=== PATIENT | male | born 1960 | race Hispanic/Latino ===

== ENCOUNTER 2017-03-08 14:15 | Emergency (ER) | payer MEDICAID ==
[2017-03-08 14:15] VITALS: BMI 41.3
[2017-03-08 14:31] VITALS: O2SAT 98
--- NOTE | 2017-03-08 15:08 | ED PDOC ---
Arrival/HPI <Pasha Caraballo - Last Filed: 03/08/17 17:35> - General Historian: Patient - History of Present Illness Time/Duration: Prior to Arrival Symptom Onset: Sudden Symptom Course: Unchanged Context: Home <LalaNancy - Last Filed: 03/08/17 18:10> - General Chief Complaint: Back Pain Time Seen by Provider: 03/08/17 14:34 - History of Present Illness Narrative History of Present Illness (Text): 03/08/17 15:02 56 yo male with PMH of HTN, asthma presented to ED with left sided paraspinal rib pain. Patient states that the pain started yesterday. He denies any recent trauma or falls. He states that he had a fall 20 years ago any he believes that is contributing to the current pain. Patient states pain is 2/10, radiating to left shoulder. Pain is worse with movement, denies taking any medication to alleviate the pain. He reports increased urinary frequency over the past few days, denies dysuria. He denies fever, chills, chest pain, sob, n/v/d/c. PMD: Dr. Siu (Nancy Reeves) Past Medical History - Provider Review Nursing Documentation Reviewed: Yes - Infectious Disease Hx of Infectious Diseases: None - Tetanus Immunization Tetanus Immunization: Unknown - Cardiac Hx Cardiac Disorders: Yes Hx Hypertension: Yes Other/Comment: JOANNA [id number] - Pulmonary Hx Respiratory Disorders: Yes Hx Asthma: Yes Other/Comment: SMOKED 1/2 TO PPD QUIT - Neurological Hx Neurological Disorder: Yes Hx Dizziness: Yes - HEENT Hx HEENT Disorder: No - Renal Hx Renal Disorder: No - Endocrine/Metabolic Hx Endocrine Disorders: No - Hematological/Oncological Hx Blood Disorders: No - Integumentary Hx Dermatological Disorder: No - Musculoskeletal/Rheumatological Hx Falls: No - Gastrointestinal Hx Gastrointestinal Disorders: Yes Other/Comment: GASTRITIS,OBESITY - Genitourinary/Gynecological Hx Genitourinary Disorders: No - Psychiatric Hx Depression: No Hx Emotional Abuse: No Hx Physical Abuse: No Hx Substance Use: No - Surgical History Hx Appendectomy: Yes Other/Comment: JOANNA VELASQUEZ 2001 - Anesthesia Hx Anesthesia Reactions: No - Suicidal Assessment Feels Threatened In Home Enviroment: No <Nancy Reeves - Last Filed: 03/08/17 18:10> Family/Social History - Physician Review Nursing Documentation Reviewed: Yes Family/Social History: No Known Family HX Smoking Status: Never Smoked Hx Alcohol Use: No Hx Substance Use: No Hx Substance Use Treatment: No <Nancy Reeves - Last Filed: 03/08/17 18:10> Allergies/Home Meds <Pasha Caraballo - Last Filed: 03/08/17 17:35> <Nancy Reeves - Last Filed: 03/08/17 18:10> Allergies/Adverse Reactions: Allergies No Known Allergies Allergy (Verified 03/08/17 14:25) Home Medications: Home Meds Medication Instructions Recorded Confirmed Aspirin [Ecotrin] 81 mg PO DAILY 02/24/16 03/08/17 Metoprolol Tartrate [Lopressor] 25 mg PO DAILY 02/24/16 03/08/17 Cetirizine HCl [Zyrtec] 10 mg PO DAILY 03/08/17 03/08/17 Ergocalciferol (Vitamin D2) 1 cap PO QWK 03/08/17 03/08/17 [Vitamin D2] Famotidine [Pepcid] 20 mg PO DAILY 03/08/17 03/08/17 Hydrochlorothiazide [Microzide] 12.5 mg PO DAILY 03/08/17 03/08/17 amLODIPine [Norvasc] 5 mg PO DAILY 03/08/17 03/08/17 Review of Systems - Review of Systems Constitutional: Normal. absent: Fatigue, Fevers Eyes: Normal. absent: Vision Changes ENT: Normal. absent: Sore Throat, Rhinorrhea, Sinus Congestion Respiratory: Normal. absent: SOB, Cough, Wheezing Cardiovascular: Normal, Edema. absent: Chest Pain, Palpitations, Calf Pain, Syncope Gastrointestinal: Normal. absent: Abdominal Pain, Constipation, Diarrhea, Nausea, Vomiting Genitourinary Male: Frequency. absent: Dysuria, Hematuria Musculoskeletal: Back Pain (left sided paraspinal ). absent: Neck Pain Skin: Normal. absent: Rash, Pruritis, Laceration, Abscess Neurological: Normal. absent: Headache, Dizziness, Focal Weakness Endocrine: Normal. absent: Diaphoresis, Polyuria, Polydipsia Hemo/Lymphatic: Normal. absent: Easy Bleeding, Easy Bruising Psychiatric: Normal <Nancy Reeves - Last Filed: 03/08/17 18:10> Physical Exam Vital Signs Reviewed: Yes - Systems Exam Head: Present: Atraumatic, Normocephalic Pupils: Present: PERRL. No: Sluggish, Non-Reactive, Pinpoint Extroacular Muscles: Present: EOMI. No: Entrapment Conjunctiva: Present: Normal. No: Injected, Icteric Mouth: Present: Moist Mucous Membranes Neck: Present: Normal Range of Motion. No: MIDLINE TENDERNESS, Paraspinal Tenderness Respiratory/Chest: Present: Clear to Auscultation, Good Air Exchange. No: Respiratory Distress, Accessory Muscle Use, Wheezes, Rales, Rhonchi, Tachypneic Cardiovascular: Present: Regular Rate and Rhythm, Normal S1, S2. No: Murmurs, Tachycardic Abdomen: Present: Normal Bowel Sounds. No: Tenderness, Distention, Peritoneal Signs Back: Present: Normal Inspection, Paraspinal Tenderness (left sided rib pain ). No: CVA Tenderness, Midline Tenderness Upper Extremity: Present: Normal Inspection, NORMAL PULSES. No: Cyanosis, Edema , Tenderness, Swelling Lower Extremity: Present: Normal Inspection, Edema, NORMAL PULSES. No: CALF TENDERNESS Neurological: Present: GCS=15, CN II-XII Intact, Speech Normal Skin: Present: Warm, Dry, Normal Color. No: Rashes Psychiatric: Present: Alert, Oriented x 3, Normal Insight, Normal Concentration <Nancy Reeves - Last Filed: 03/08/17 18:10> Vital Signs Temp Pulse Resp BP Pulse Ox 03/08/17 17:22 66 18 162/71 H 98 03/08/17 16:28 65 18 165/79 H 98 03/08/17 15:22 98.7 F 68 18 168/89 H 98 03/08/17 14:25 99.1 F 70 17 170/91 H 98 Medical Decision Making <Pasha Caraballo - Last Filed: 03/08/17 17:35> - EKG Interpretation Interpreted by ED Physician: Yes Type: 12 lead EKG <Nancy Reeves - Last Filed: 03/08/17 18:10> ED Course and Treatment: Patient Seen With Resident: In agreement with resident note which contains more details about the patient. Patient was seen and evaluated with resident. Came up with plan and treatment together. A 56 year old male presents with left sided paraspinal rib pain that developed yesterday. Additional HPI details as noted by resident. On physical exam, patient had paraspinal tenderness. Xray of ribs and Urinalysis ordered. Will give Flexeril and Toradol medications. EKG: Ordered, reviewed, and independently interpreted the EKG. Rate : 68 BPM Rhythm : NSR Interpretation : No ST-segment elevations or depressions, no T-wave inversions, normal intervals. 03/08/17 17:35 Accession No. 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 Focal isodense protrusion seen at the midpole of the right kidney of uncertain etiology. The possibility of mass lesion at the right kidney is not a excluded. Further assessment by ultrasound or enhanced CT is suggested. No evidence of acute pathology in the abdomen and pelvis. Patient feels better. UA with trace blood. CT ordered to r/o kidney stone. CT reviewed with no CT stone. Possible mass noted in the kidney. Will have patient follow up with PMD on this. Labs pending. (Pasha Caraballo) 03/08/17 15:12 Impression: 56 yo male with PMH of HTN, asthma presented to ED with left sided paraspinal rib pain. Differential diagnoses includes but not limited to: - muscle strain, pylonephritis Plan: - x ray - UA - pain management 03/08/17 16:15 - UA positive for blood, will order CBC, CMP and CT abd/pel without contrast. Patient is doing well, pain improved. 03/08/17 18:07 - cbc and cmp reviewed and wnl. - Patient is feeling better. Results of CT scan discussed with patient, he is instructed to follow up with PMD, Dr. Siu tomorrow. Discharge instructions was discussed with patient, all questions answered. (Nancy Reeves) - Lab Interpretations Lab Results: 03/08/17 17:00 03/08/17 17:00 Lab Results 03/08/17 17:00: Sodium 139, Potassium 3.8, Chloride 104, Carbon Dioxide 26, Anion Gap 13, BUN 10, Creatinine 0.7, Est GFR ( Amer) > 60, Est GFR (Non- Af Amer) > 60, Random Glucose 88, Calcium 9.1, Total Bilirubin 1.2, AST 48, ALT 35, Alkaline Phosphatase 93, Total Protein 7.6, Albumin 4.1, Globulin 3.5, Albumin/Globulin Ratio 1.2 03/08/17 17:00: WBC 7.5, RBC 4.84, Hgb 14.4, Hct 42.9, MCV 88.6, MCH 29.8, MCHC 33.6, RDW 13.3, Plt Count 185, MPV 10.1, Gran % 59.0, Lymph % (Auto) 29.1, [place] % (Auto) 8.3 H, Eos % (Auto) 2.7, Baso % (Auto) 0.9, Gran # 4.40, Lymph # 2.2, [place] # 0.6, Eos # 0.2, Baso # 0.07 03/08/17 14:50: Urine Color Yellow, Urine Appearance Clear, Urine pH 6.0, Ur Specific [place] >= 1.030, Urine Protein Negative, Urine Glucose (UA) Negative, Urine Ketones Negative, Urine Blood Trace-lysed H, Urine Nitrate Negative, Urine Bilirubin Negative, Urine Urobilinogen 1.0 H, Ur Leukocyte Esterase Negative, Urine RBC 1 - 3, Urine WBC 0 - 2, Ur Epithelial Cells 0 - 2, Urine Bacteria Mod - RAD Interpretation Radiology Orders: 03/08/17 14:57 RIBS LEFT & PA CHEST [RAD] Stat 03/08/17 16:13 ABD & PELVIS W/O PO OR IV CONT [CT] Stat - EKG Interpretation EKG Interpretation (Text): 03/08/17 15:15 Rate: 68 NSR, no ST changes (Lala,Nancy) - Medication Orders Current Medication Orders: Discontinued Medications Cyclobenzaprine HCl (Flexeril) 10 mg PO STAT STA Stop: 03/08/17 14:58 Last Admin: 03/08/17 15:30 Dose: 10 mg Ketorolac Tromethamine (Toradol) 60 mg IM STAT STA Stop: 03/08/17 14:58 Last Admin: 03/08/17 15:30 Dose: 60 mg - Scribe Statement The provider has reviewed the documentation as recorded by the Scribe <Pasha Caraballo - Last Filed: 03/08/17 17:35> <Nancy Reeves - Last Filed: 03/08/17 18:10> - Scribe Statement Poppy Hendrix Provider Scribe Attestation: All medical record entries made by the Scribe were at my direction and personally dictated by me. I have reviewed the chart and agree that the record accurately reflects my personal performance of the history, physical exam, medical decision making, and the department course for this patient. I have also personally directed, reviewed, and agree with the discharge instructions and disposition. (Pasha Caraballo) Disposition/Present on Arrival <Pasha Caraballo - Last Filed: 03/08/17 17:35> - Present on Arrival Any Indicators Present on Arrival: No History of DVT/PE: No History of Uncontrolled Diabetes: No Urinary Catheter: No History of Decub. Ulcer: No History Surgical Site Infection Following: None - Disposition Have Diagnosis and Disposition been Completed?: Yes Disposition Time: 18:00 Patient Plan: Discharge <Jorge Reevesa - Last Filed: 03/08/17 18:10> - Disposition Diagnosis: Muscle strain Disposition: HOME/ ROUTINE Condition: GOOD Referrals: Manjit Siu MD [Primary Care Provider] - Follow up with primary
[2017-03-08 15:43] LABS: URINE BILIRUBIN NEGATIVE (NEGATIVE); URINE BLOOD TRACE-LYSED (NEGATIVE); URINE GLUCOSE (UA) NEGATIVE (NEGATIVE); URINE KETONE NEGATIVE (NEGATIVE); URINE LEUKOCYTE ESTERASE NEGATIVE Leu/uL (NEGATIVE); URINE PROTEIN NEGATIVE mg/dL (<30 mg/dL)
[2017-03-08 16:10] LABS: URINE APPEARANCE CLEAR (CLEAR); URINE COLOR YELLOW (YELLOW)
[2017-03-08 16:33] LABS: URINE BACTERIA MOD (NEG); URINE EPITHELIAL CELLS 0 - 2 /hpf (0-5); URINE WBC 0 - 2 /hpf (0-6)
--- NOTE | 2017-03-08 17:27 | CT ---
PROCEDURE: CT Abdomen and Pelvis without intravenous contrast HISTORY: UA positive for blood COMPARISON: None. TECHNIQUE: Axial and reformatted coronal and sagittal CT images of the abdomen and pelvis were obtained without IV or oral contrast administration.. Contrast Dose: 0 Radiation dose: Total exam DLP = 1461.78 mGy-cm. This CT exam was performed using one or more of the following dose reduction techniques: Automated exposure control, adjustment of the mA and/or kV according to patient size, and/or use of iterative reconstruction technique. FINDINGS: LOWER THORAX: Unremarkable. LIVER: Unremarkable. No gross lesion or ductal dilatation. GALLBLADDER AND BILE DUCTS: Unremarkable. PANCREAS: Unremarkable. No gross lesion or ductal dilatation. SPLEEN: Unremarkable. ADRENALS: Unremarkable. No mass. KIDNEYS AND URETERS: There is no evidence of nephrolithiasis or hydronephrosis. There is focal as a density protrusion in the right kidney midpole. The possibility of mass lesion cannot be totally excluded. VASCULATURE: Unremarkable. No aortic aneurysm. BOWEL: Unremarkable. No obstruction. No gross mural thickening. APPENDIX: Unremarkable. Normal appendix. PERITONEUM: Unremarkable. No free fluid. No free air. LYMPH NODES: Unremarkable. No enlarged lymph nodes. BLADDER: Unremarkable. REPRODUCTIVE: Unremarkable. BONES: No acute fracture. OTHER FINDINGS: None. IMPRESSION: No evidence of nephrolithiasis or hydronephrosis. Focal isodense protrusion seen at the midpole of the right kidney of uncertain etiology. The possibility of mass lesion at the right kidney is not a excluded. Further assessment by ultrasound or enhanced CT is suggested. No evidence of acute pathology in the abdomen and pelvis.
[2017-03-08 17:38] LABS: ADD MANUAL DIFF? NO
[2017-03-08 17:45] LABS: BASO # 0.07 K/mm3 (0.0-2.0); BASO % 0.9 % (0.0-3.0); EOS # 0.2 (0.0-0.7); EOS % 2.7 % (1.5-5.0); HEMATOCRIT 42.9 % (42.0-52.0); LYMPH # 2.2 (1.2-3.4); LYMPH % 29.1 % (22.0-35.0); MEAN CELL VOLUME 88.6 fL (80.0-105.0); MEAN CORPUSCULAR HEMOGLOBIN 29.8 pg (25.0-35.0); MEAN CORPUSCULAR HGB CONC 33.6 g/dl (31.0-37.0); MEAN PLATELET VOLUME 10.1 fl (7.0-11.0); MONO # 0.6 (0.1-0.6); MONO % 8.3 % (1.0-6.0); PLATELET COUNT 185 10^3/uL (120.0-450.0); RED CELL DISTRIBUTION WIDTH 13.3 % (11.5-14.5); WHITE BLOOD COUNT 7.5 10^3/ul (4.5-11.0)
[2017-03-08 17:55] LABS: ALB/GLOB RATIO 1.2 (1.1-1.8); ALKALINE PHOSPHATASE 93 U/L (38-133); ALT/SGPT 35 U/L (7-56); AST/SGOT 48 U/L (15-59); BILIRUBIN,TOTAL 1.2 mg/dL (0.2-1.3); BLOOD UREA NITROGEN 10 mg/dL (7-21); CALCIUM 9.1 mg/dL (8.4-10.5); CARBON DIOXIDE 26 mmol/L (21-33); GFR AFRICAN-AMERICAN > 60; GLUCOSE,RANDOM 88 mg/dL (70-110); SODIUM 139 mmol/L (132-148); TOTAL PROTEIN 7.6 g/dL (5.8-8.3)
[2017-03-08 17:57] LABS: CHLORIDE 104 mmol/L (98-107); POTASSIUM 3.8 mmol/L (3.6-5.0)
[2017-03-08 18:26] VITALS: BP 122/78; PULSE 74; RESP 16; TEMP 98
--- NOTE | 2017-03-09 09:41 | RAD ---
PROCEDURE: Radiographs of the Chest and Left Ribs. HISTORY: rib pain COMPARISON: None available. TECHNIQUE: Frontal radiograph of the chest and multiple oblique radiographs of the left ribs were obtained. FINDINGS: LEFT RIBS: No fracture or focal lesion visualized. LUNGS: Clear. PLEURA: No pneumothorax or pleural fluid. CARDIOVASCULAR: Normal sized heart. No pulmonary vascular congestion. OTHER FINDINGS: None. IMPRESSION: Unremarkable radiographs of the chest and left ribs. No left rib fracture.
--- NOTE | 2017-03-09 23:28 | CARD ---
APPROVED REPORT EKG Measurement Heart [id number] [id number] <Conclusion> Normal sinus rhythm Normal ECG
== END 2017-03-08 18:26 | disposition home or self-care (01) ==
LOC: ED 14:15
DX: S29.011A Strain of muscle and tendon of front wall of thorax, initial encounter (principal); X58.XXXA Exposure to other specified factors, initial encounter; I10 Essential (primary) hypertension; Z87.891 Personal history of nicotine dependence
CPT/HCPCS: 71101; 74176; 80053; 81001; 85025; 93005; 96372; 99284; J1885

== ENCOUNTER 2017-03-16 17:09 | Observation (INO) | payer MEDICAID ==
[2017-03-16 17:10] VITALS: BMI 41.3
[2017-03-16] MEDS ORDERED: Ampicillin/Sulbactam 3 GM in Sodium Chloride 0.9% 100 ML IVPB STA (17:46)
[2017-03-16] MEDS ORDERED: Sodium Chloride 0.9% 1,000 ML IV STA (17:46)
[2017-03-16] MEDS ORDERED: Lidocaine 1% Inj (20ml) IJ STA (17:47)
--- NOTE | 2017-03-16 17:52 | ED PDOC ---
Arrival/HPI - General Chief Complaint: ENT Problem Time Seen by Provider: 03/16/17 17:34 - History of Present Illness Narrative History of Present Illness (Text): 56M c/o throat pain, more on the left side, worsening since yesterday. no fever. he went to his pcp today who sent him here. Past Medical History - Infectious Disease Hx of Infectious Diseases: None - Tetanus Immunization Tetanus Immunization: Unknown - Cardiac Hx Cardiac Disorders: Yes Hx Hypertension: Yes Other/Comment: JOANNA CATHAsh2001 - Pulmonary Hx Respiratory Disorders: Yes Hx Asthma: Yes Other/Comment: SMOKED 1/2 TO PPD QUIT - Neurological Hx Neurological Disorder: Yes Hx Dizziness: Yes - HEENT Hx HEENT Disorder: No - Renal Hx Renal Disorder: No - Endocrine/Metabolic Hx Endocrine Disorders: No - Hematological/Oncological Hx Blood Disorders: No - Integumentary Hx Dermatological Disorder: No - Musculoskeletal/Rheumatological Hx Falls: No - Gastrointestinal Hx Gastrointestinal Disorders: Yes Other/Comment: GASTRITIS,OBESITY - Genitourinary/Gynecological Hx Genitourinary Disorders: No - Psychiatric Hx Depression: No Hx Emotional Abuse: No Hx Physical Abuse: No Hx Substance Use: No - Surgical History Hx Appendectomy: Yes Other/Comment: JOANNA CATHAsh 2001 - Anesthesia Hx Anesthesia Reactions: No - Suicidal Assessment Feels Threatened In Home Enviroment: No Family/Social History Family/Social History: Other (nc) Smoking Status: Never Smoked Hx Alcohol Use: No Hx Substance Use: No Hx Substance Use Treatment: No Allergies/Home Meds Allergies/Adverse Reactions: Allergies No Known Allergies Allergy (Verified 03/16/17 17:19) Home Medications: Home Meds Medication Instructions Recorded Confirmed Aspirin [Ecotrin] 81 mg PO DAILY 02/24/16 03/16/17 Metoprolol Tartrate [Lopressor] 25 mg PO DAILY 02/24/16 03/16/17 Cetirizine HCl [Zyrtec] 10 mg PO DAILY 03/08/17 03/16/17 Ergocalciferol (Vitamin D2) 1 cap PO QWK 03/08/17 03/16/17 [Vitamin D2] Famotidine [Pepcid] 20 mg PO DAILY 03/08/17 03/16/17 Hydrochlorothiazide [Microzide] 12.5 mg PO DAILY 03/08/17 03/16/17 amLODIPine [Norvasc] 5 mg PO DAILY 03/08/17 03/16/17 Review of Systems - Physician Review All systems were reviewed & negative as marked: Yes - Review of Systems Constitutional: absent: Fevers ENT: Sore Throat. absent: Voice Changes Respiratory: absent: SOB, Cough Cardiovascular: absent: Chest Pain Gastrointestinal: absent: Nausea, Vomiting Physical Exam Vital Signs Reviewed: Yes Vital Signs Temp Pulse Resp BP Pulse Ox 03/16/17 17:20 99.6 F 107 H 17 169/85 H 94 L Appearance: Positive for: Well-Appearing, Non-Toxic, Comfortable Pain Distress: None Mental Status: Positive for: Alert and Oriented X 3 - Systems Exam Head: Present: Atraumatic Pupils: Present: PERRL Mouth: Present: Moist Mucous Membranes Pharnyx: Present: Peritonsilar Swelling (left peritonsillar abscess), Uvular Deviation, Other (normal phonation, no trismus, handling secretions well). No: Muffled/Hoarse Voice, [place] Neck: Present: Normal Range of Motion Respiratory/Chest: Present: Clear to Auscultation. No: Accessory Muscle Use Cardiovascular: Present: Regular Rate and Rhythm Upper Extremity: No: Cyanosis Neurological: Present: GCS=15, Motor Func Grossly Intact, Normal Sensory Function Skin: Present: Warm, Dry Medical Decision Making ED Course and Treatment: 03/16/17 18:25 ENT resident at bedside attempting I&D. Bloody drainage only, non-purulent. Pt tolerated procedure well- reported feeling better after. - Medication Orders Current Medication Orders: Sodium Chloride (Sodium Chloride 0.9%) 1,000 mls @ 999 mls/hr IV .Q1H1M STA Stop: 03/16/17 18:46 Last Admin: 03/16/17 18:17 Dose: 999 mls/hr Ampicillin Sodium/Sulbactam (Sodium 3 gm/ Sodium Chloride) 100 mls @ 100 mls/ hr IVPB STAT STA PRN Reason: Protocol Stop: 03/16/17 18:45 Last Admin: 03/16/17 18:17 Dose: 100 mls/hr Discontinued Medications Dexamethasone (Decadron Inj) Confirm Administered Dose 12 mg .ROUTE .STK-MED ONE Stop: 03/16/17 18:22 Last Admin: 03/16/17 18:30 Dose: 10 mg Comments: Per verbal order Dr. Funk Ketorolac Tromethamine (Toradol) Confirm Administered Dose 30 mg .ROUTE .STK- MED ONE Stop: 03/16/17 18:21 Last Admin: 03/16/17 18:29 Dose: 15 mg Comments: Per verbal order Dr. Funk Lidocaine HCl (Lidocaine 1% (20ml)) 20 ml IJ STAT STA Stop: 03/16/17 17:48 Last Admin: 03/16/17 18:17 Dose: Disposition/Present on Arrival - Present on Arrival Any Indicators Present on Arrival: No History of DVT/PE: No History of Uncontrolled Diabetes: No Urinary Catheter: No History of Decub. Ulcer: No History Surgical Site Infection Following: None - Disposition Have Diagnosis and Disposition been Completed?: Yes Diagnosis: Peritonsillar cellulitis Disposition: HOSPITALIZED Disposition Time: 18:33 Condition: STABLE Discharge Instructions (ExitCare): Cellulitis (ED)
[2017-03-16 18:16] LABS: ADD MANUAL DIFF? NO
[2017-03-16] MEDS ORDERED: Dexamethasone 4 mg/1 ml ONE (18:21)
[2017-03-16 18:29] LABS: BASO # 0.04 K/mm3 (0.0-2.0); BASO % 0.4 % (0.0-3.0); EOS # 0.1 (0.0-0.7); EOS % 1.2 % (1.5-5.0); GRAN # 8.93 (1.4-6.5); GRAN % 78.6 % (50.0-68.0); HEMATOCRIT 42.9 % (42.0-52.0); LYMPH # 1.3 (1.2-3.4); LYMPH % 11.3 % (22.0-35.0); MEAN CELL VOLUME 87.9 fL (80.0-105.0); MEAN CORPUSCULAR HEMOGLOBIN 29.5 pg (25.0-35.0); MEAN CORPUSCULAR HGB CONC 33.6 g/dl (31.0-37.0); MEAN PLATELET VOLUME 10.1 fl (7.0-11.0); MONO % 8.5 % (1.0-6.0); PLATELET COUNT 207 10^3/uL (120.0-450.0); RED CELL DISTRIBUTION WIDTH 13.7 % (11.5-14.5); WHITE BLOOD COUNT 11.4 10^3/ul (4.5-11.0)
[2017-03-16 18:40] LABS: ALB/GLOB RATIO 1.3 (1.1-1.8); ALKALINE PHOSPHATASE 103 U/L (38-133); ALT/SGPT 42 U/L (7-56); AST/SGOT 33 U/L (15-59); BILIRUBIN,TOTAL 1.4 mg/dL (0.2-1.3); BLOOD UREA NITROGEN 10 mg/dL (7-21); CALCIUM 9.2 mg/dL (8.4-10.5); CARBON DIOXIDE 27 mmol/L (21-33); CHLORIDE 99 mmol/L (98-107); GFR AFRICAN-AMERICAN > 60; GLUCOSE,RANDOM 105 mg/dL (70-110); POTASSIUM 3.6 mmol/L (3.6-5.0); SODIUM 136 mmol/L (132-148); TOTAL PROTEIN 7.9 g/dL (5.8-8.3)
--- NOTE | 2017-03-16 20:29 | CON ---
DATE: 03/16/2017 EAR, NOSE AND THROAT CONSULTATION REASON FOR CONSULTATION: Peritonsillar abscess. CONSULTING PHYSICIAN: Dr. Steve Wood. REFERRING PHYSICIAN: Dr. Nestor Funk. HISTORY OF PRESENT ILLNESS: This is a 56-year-old male with no significant past medical history, who presents to the [facility] Emergency Room with a 2-day history of sore throat. The choco ent states that he noticed a sore throat starting yesterday and then today it got significantly worse , prompting his visit to the Emergency Room. The patient also notes dysphagia and odynophagia for li quids and solids. He also notes some changes in his voice and some tenderness to his left neck. He denies fevers and chills at home. He denies any shortness of breath or difficulty breathing at this time. He does note one incident many years back where he had a similar complaint and was put on oral antibiotics, which seemed to have resolved the episode. However, since then he has not had any rizwana lar complaints and has been healthy otherwise. He denies having tonsillectomy in the past. At that point of examination, the patient is stable, comfortable and reports the history as described above. He denies having ever seen an ear, nose and throat doctor and denies other ear, nose and throat comp laints at this time. PAST MEDICAL HISTORY: Obesity, gastritis. He has hypertension. PAST SURGICAL HISTORY: He has had an appendectomy many years ago. Also had a cardiac catheterizatio n with negative results. SOCIAL HISTORY: He used to smoke half a pack a day, but has recently quit. Denies alcohol use. ALLERGIES: He has no known drug or environmental allergies. MEDICATIONS: He takes aspirin, metoprolol, cetirizine, vitamin D, Pepcid, hydrochlorothiazide and am lodipine. REVIEW OF SYSTEMS: Negative as per HPI. PHYSICAL EXAMINATION: VITAL SIGNS: His temperature is 99.6, pulse is 107, blood pressure 169/85, oxygen saturation 96% on room air. GENERAL: He is awake, alert, oriented x 3 in no acute distress, sitting comfortably. EYES: Extraocular movements intact. Pupils equal, round, and reactive to light. EARS: External auricles are unremarkable. NOSE: Patent bilaterally, no discharge, no epistaxis. OROPHARYNX AND ORAL CAVITY: Lips are unremarkable. Tongue is mobile and midline. Oral mucosa is dr yAsh No buccal lesions. He has edema to the left soft palate and slight edema to the uvula. Uvula is deviated to the right. Some trismus, no drooling. NECK: Soft, supple, tender to palpation on the left side with shotty lymphadenopathy. Trachea midli ne. No thyromegaly. Respirations are nonlabored. LABORATORY DATA: He has a white blood cell count of 11.4, hemoglobin 14.4, hematocrit 42.9, platelet s 207. Sodium is 136, potassium 3.6, chloride 99, carbon dioxide 27, BUN 10, creatinine 0.7, calcium 9.2. AST 33, ALT 42, alkaline phosphatase 103. RADIOLOGY: There is no imaging. PROCEDURE: Needle aspiration. PROCEDURE IN DETAIL: After obtaining informed consent, the oral cavity and soft palate was anestheti zed using Cetacaine spray. Afterwards, an 18 gauge needle on a 10 mL syringe was used to enter the l eft peritonsillar region 4 times, without any aspiration of purulent material. The patient tolerated the procedure well with no immediate complications. ASSESSMENT AND PLAN: This is a 56-year-old male who presented with a swelling in the left peritonsil lar region, most likely an early peritonsillar phlegmon, possible abscess, status post needle aspirat ion. At this point, would recommend admitting the patient for 24 hours of IV antibiotics. I would h ave him on Unasyn and Decadron. Would also have him on pain medicine as needed. I would have him on a diet as tolerated. Would also recommend performing a CAT scan if the patient's symptoms do not imp rove within the next 24 hours. Otherwise, the patient should be okay to go home after 24 hours of IV antibiotics if he feels better at that time. The patient was also instructed to follow up with us a s an outpatient within a week if the symptoms do not improve. Thank you for allowing us to participate in this patient's care. Steve Wood DO cc: [id number] TT: 03/16/2017 20:28:38 Confirmation # [id number] Dictation # [id number]
[2017-03-16] MEDS: Sodium Chloride 0.9% 1,000 ML IV SCH (21:11)
[2017-03-16] MEDS ORDERED: Pneumococcal 23-Valent Vaccine IM ONE (22:20)
[2017-03-17] MEDS ORDERED: Ampicillin/Sulbactam 1.5 gm Inj IVPB SCH
[2017-03-17] MEDS: Ampicillin/Sulbactam 3 GM in Sodium Chloride 0.9% 100 ML IVPB SCH ×5 (01:09→23:00)
[2017-03-17] MEDS: Sodium Chloride 0.9% 1,000 ML IV SCH (06:19)
--- NOTE | 2017-03-17 11:38 | HP ---
The patient came in, initially seen in office with difficult swallowing and throat pain that is noted for 24 hours. HISTORY OF PRESENT ILLNESS: A 56-year-old male, history of hypertension, obesity. Complained of sor e throat, difficult swallowing for the last 24 hours, seems getting worse. The patient denied any fe issac, any chills, but he feels having worsening problem of swallowing over 24 hours. The patient coul d not eat breakfast, regular breakfast, but he ate liquid diet in the morning. The patient was seen in the office, found to have diffuse and huge right tonsillar area swelling, on the right more than t he left, with very narrow pharynx. The patient was advised to go to the ER for evaluation. PAST MEDICAL HISTORY: Hypertension, hypercholesterolemia, obesity, possible sleep apnea, unclear, al lergic rhinitis. SOCIAL HISTORY: He is a former smoker, quit smoking years ago. No alcohol, no drugs. FAMILY HISTORY: Noncontributory. MEDICATIONS: He takes Lipitor 40 once a day, aspirin 81, Pepcid 20 b.i.d., Microzide 12.5 mg p.o. da yovani, Motrin, ibuprofen p.r.n., Lopressor 25 b.i.d., Norvasc 5 mg p.o. daily. ALLERGIES: No known allergies. REVIEW OF SYSTEMS: Negative otherwise, negative all systems. PHYSICAL EXAMINATION: VITAL SIGNS: Temperature 97.5, heart rate 75, blood pressure 143/89, respirations 18, saturating 95% . HEAD AND NECK: Normal, except large huge right tonsillar area swelling consistent with possible tons illar abscess. No JVD, no thyromegaly. NECK: Tender on the right side more than left. CHEST: Clear. Good air entry. CARDIAC: First sound, second sound normal. ABDOMEN: Soft, obese, nontender. EXTREMITIES: No edema. NEUROLOGIC: Normal. LABORATORY DATA: White count 11.4, hemoglobin 14.4, hematocrit 42.9, platelets 207. Chemistry: Sod ium 136, potassium 3.6, chloride 99, bicarb 27, BUN 10, creatinine 0.7. Liver function test is marry l. Albumin, globulin and ratio is normal. IMPRESSION AND PLAN: 1. A 56-year-old male, obese. Came in with right tonsillar abscess. [facility] and further ENT evaluation and management. At this time, we will g igor IV Zosyn, IV fluids. Will keep the head at 45 degrees and will see how the patient progresses. The patient seems tried to drain that right tonsillar area, poke it with a needle, but it seems like no pus came out. At this time, we will continue IV antibiotic, keep n.p.o., give IV fluids, medicati ons p.o. with a little water as possible and will continue followup. 2. Hypertension, obesity. Resume all blood pressure medicines. Keep the head elevated at 45 degree s for possible obstructive sleep apnea precautions. Continue current treatment. Manjit Siu MD cc: [id number] TT: 03/17/2017 11:37:22 en
[2017-03-17 17:50] VITALS: RESP 20
[2017-03-18] MEDS: Ampicillin/Sulbactam 3 GM in Sodium Chloride 0.9% 100 ML IVPB SCH ×3 (05:08→18:20)
[2017-03-18 16:51] VITALS: BP 150/84; PULSE 69; TEMP 97.9; O2SAT 97
[2017-03-18] MEDS: Sodium Chloride 0.9% 1,000 ML IV SCH (17:00)
--- NOTE | 2017-03-20 18:36 | DS ---
The patient admitted with possible tonsillar abscess, severe pharyngitis with diffuse swelling. The patient improved clinically over 24 hours. IV Rocephin received 2 doses. The patient is feeling bet ter. He is able to swallow soft diet and tolerated very well. No new complaint, no chest pain, no s hort of breath. He is hemodynamically stable, afebrile. He wants to go home. ENT okay to go home. On antibiotic, Augmentin. PHYSICAL EXAMINATION: VITAL SIGNS: Temperature 97, heart rate 69, blood pressure 150/84, respirations 20, saturation 97% o n room air. HEAD AND NECK: Normal, his tonsillar oropharyngeal area improved significantly, decreased swelling. Otherwise normal. CHEST: Clear. Good air entry. CARDIAC: First and second sounds are normal. ABDOMEN: Soft, nontender. EXTREMITIES: No edema. NEUROLOGIC: Normal. DISCHARGE DIAGNOSES: 1. Severe tonsillitis. 2. Severe pharyngitis. Discharge the patient on p.o. Augmentin for 10 days. Follow up with ____ EN T in a week. 3. Hypertension, hypercholesterolemia, obesity. We will resume all his meds. Follow up in a week. Manjit Siu MD cc: [id number] TT: 03/20/2017 18:36:17 jn
[2017-03-24] MEDS ORDERED: Ergocalciferol 50,000 Intl Units Cap PO SCH (10:00)
== END 2017-03-18 20:47 | disposition home or self-care (01) ==
LOC: ED 17:09 → ERH 18:32 → 5RSO 21:14
PROVIDERS: ADMIT Internal Medicine; ATTEND Internal Medicine
DX: J03.90 Acute tonsillitis, unspecified (principal); J36 Peritonsillar abscess; J45.909 Unspecified asthma, uncomplicated; E66.9 Obesity, unspecified; E78.00 Pure hypercholesterolemia, unspecified; I10 Essential (primary) hypertension; R13.10 Dysphagia, unspecified; Z79.82 Long term (current) use of aspirin; Z79.899 Other long term (current) drug therapy; Z87.891 Personal history of nicotine dependence; Z90.49 Acquired absence of other specified parts of digestive tract; R40.2412 Glasgow coma scale score 13-15, at arrival to emergency department; K29.70 Gastritis, unspecified, without bleeding; Z68.41 Body mass index [BMI] 40.0-44.9, adult
CPT/HCPCS: 42999; 80053; 85025; 96365; 96366; 96376; 99283; G0378; J0295; J1100; J1885; J7040

== ENCOUNTER 2017-06-08 13:52 | Emergency (ER) | payer MEDICAID ==
[2017-06-08 13:52] VITALS: BMI 41.3
[2017-06-08 14:15] VITALS: TEMP 98.8; O2SAT 98
--- NOTE | 2017-06-08 14:26 | ED PDOC ---
Arrival/HPI - General Chief Complaint: ENT Problem Time Seen by Provider: 06/08/17 14:14 Historian: Patient - History of Present Illness Narrative History of Present Illness (Text): 06/08/17 14:26 A 57 year old male, whose past medical history includes hypertension, presents to the emergency department complaining of a sore throat since yesterday. Patient denies any fever, chills, shortness of breath, difficulty swallowing, drooling, voice changes, nausea, vomiting, abdominal pain, chest pain or any other complaints. PMD: Dr. Siu Time/Duration: Other (yesterday) Symptom Course: Unchanged Quality: Other Context: Home Past Medical History - Provider Review Nursing Documentation Reviewed: Yes - Infectious Disease Hx of Infectious Diseases: None - Tetanus Immunization Tetanus Immunization: Unknown - Cardiac Hx Hypertension: Yes Hx Peripheral Edema: Yes (ble +1) - Pulmonary Hx Respiratory Disorders: Yes Hx Asthma: Yes Other/Comment: SMOKED 1/2 TO PPD QUIT - Neurological Hx Neurological Disorder: Yes Hx Dizziness: Yes - HEENT Other/Comment: h/o throat abscess - Renal Hx Renal Disorder: No - Endocrine/Metabolic Hx Endocrine Disorders: No - Hematological/Oncological Hx Blood Disorders: No - Integumentary Hx Dermatological Disorder: No - Musculoskeletal/Rheumatological Hx Back Pain: Yes Hx Falls: No - Gastrointestinal Hx Gastroesophageal Reflux: Yes - Genitourinary/Gynecological Hx Genitourinary Disorders: No - Psychiatric Hx Depression: No Hx Emotional Abuse: No Hx Physical Abuse: No Hx Substance Use: No - Surgical History Hx Appendectomy: Yes Other/Comment: CARD CATH. 2001 - Anesthesia Hx Anesthesia: Yes Hx Anesthesia Reactions: No Hx Malignant Hyperthermia: No - Suicidal Assessment Feels Threatened In Home Enviroment: No Family/Social History - Physician Review Nursing Documentation Reviewed: Yes Family/Social History: No Known Family HX Smoking Status: Former Smoker Hx Alcohol Use: No Hx Substance Use: No Hx Substance Use Treatment: No Allergies/Home Meds Allergies/Adverse Reactions: Allergies No Known Allergies Allergy (Verified 03/16/17 17:19) Home Medications: Home Meds Medication Instructions Recorded Confirmed Aspirin [Ecotrin] 81 mg PO DAILY 02/24/16 06/08/17 Metoprolol Tartrate [Lopressor] 25 mg PO DAILY 02/24/16 06/08/17 Cetirizine HCl [Zyrtec] 10 mg PO DAILY 03/08/17 06/08/17 Ergocalciferol (Vitamin D2) 1 cap PO QWK 03/08/17 06/08/17 [Vitamin D2] Famotidine [Pepcid] 20 mg PO DAILY 03/08/17 06/08/17 Hydrochlorothiazide [Microzide] 12.5 mg PO DAILY 03/08/17 06/08/17 amLODIPine [Norvasc] 5 mg PO DAILY 03/08/17 06/08/17 Review of Systems - Physician Review All systems were reviewed & negative as marked: Yes - Review of Systems Constitutional: absent: Fevers, Night Sweats ENT: Sore Throat. absent: Voice Changes, Other (Difficulty swallowing, drooling ) Respiratory: absent: SOB Cardiovascular: absent: Chest Pain Gastrointestinal: absent: Abdominal Pain, Nausea, Vomiting Physical Exam Vital Signs Reviewed: Yes Vital Signs Temp Pulse Resp BP Pulse Ox 06/08/17 15:52 99 H 17 140/85 98 06/08/17 14:12 98.8 F 116 H 20 146/87 98 Temperature: Afebrile Blood Pressure: Normal Pulse: Tachycardic Respiratory Rate: Normal Appearance: Positive for: Well-Appearing, Non-Toxic, Comfortable Pain Distress: None Mental Status: Positive for: Alert and Oriented X 3 - Systems Exam Head: Present: Atraumatic, Normocephalic Pupils: Present: PERRL Extroacular Muscles: Present: EOMI Conjunctiva: Present: Normal Mouth: Present: Moist Mucous Membranes Pharnyx: Present: ERYTHEMA (left sided peritonsilar swelling), Peritonsilar Swelling (left sided), Uvular Deviation (to the right) Neck: Present: Normal Range of Motion, Lymphadenopathy (left sided) Respiratory/Chest: Present: Clear to Auscultation, Good Air Exchange. No: Respiratory Distress, Accessory Muscle Use Cardiovascular: Present: Regular Rate and Rhythm, Normal S1, S2. No: Murmurs Abdomen: Present: Normal Bowel Sounds. No: Tenderness, Distention, Peritoneal Signs Back: Present: Normal Inspection Upper Extremity: Present: Normal Inspection. No: Cyanosis, Edema Lower Extremity: Present: Normal Inspection. No: Edema Neurological: Present: GCS=15, CN II-XII Intact, Speech Normal Skin: Present: Warm, Dry, Normal Color. No: Rashes Psychiatric: Present: Alert, Oriented x 3, Normal Insight, Normal Concentration Medical Decision Making ED Course and Treatment: 06/08/17 14:26 Impression: A 57 year old male with a sore throat. Differential Diagnosis included but are not limited to: Peritonsilar abscess vs cellulitis Plan: -- Labs -- Blood culture -- IV fluids -- Reassess and disposition Progress Notes: 06/08/17 15:[address] Chris Hernandez, states to have patient follow up in his office immediately after discharge. Patient aware of and in agreement with plan. 06/08/17 15:51 Labs reviewed. Patient is stable for discharge. He states he will follow up with Dr. Hernandez immediately after leaving emergency room. Patient is reliable, states he will return if needed or if new concerning symptoms arise. 06/08/17 16:[address] Hernandez's office and the corporate legal secretary told me patient just arrived. - Lab Interpretations Lab Results: 06/08/17 15:25 06/08/17 15:25 Lab Results 06/08/17 15:25: Sodium 141, Chloride 97 L, Potassium 4.1, Carbon Dioxide 31, Anion Gap 17, BUN 14, Creatinine 0.8, Est GFR ( Amer) > 60, Est GFR (Non- Af Amer) > 60, Random Glucose 117 H, Calcium 9.4, Total Bilirubin 1.6 H, AST 29 , ALT 37, Alkaline Phosphatase 101, Total Protein 8.4 H, Albumin 4.7, Globulin 3.7, Albumin/Globulin Ratio 1.3 06/08/17 15:25: pO2 27 L, VBG pH 7.35, VBG pCO2 59.0, VBG HCO3 32.6 H, VBG Total CO2 34.4 H, VBG O2 Sat (Calc) 56.6, VBG Base Excess 5.2 H, VBG Potassium 4.4, Sodium 135.0, Chloride 99.0, Glucose 122 H, Lactate 1.8, FiO2 21.0, Venous Blood Potassium 4.4 06/08/17 15:25: PT 11.1, INR 1.03, APTT 27.5 06/08/17 15:25: WBC 12.2 H, RBC 5.17, Hgb 15.4, Hct 45.6, MCV 88.2, MCH 29.8, MCHC 33.8, RDW 13.7, Plt Count 195, MPV 9.9, Gran % 71.3 H, Lymph % (Auto) 16.0 L, [place] % (Auto) 11.8 H, Eos % (Auto) 0.7 L, Baso % (Auto) 0.2, Gran # 8.69 H, Lymph # 2.0, [place] # 1.4 H, Eos # 0.1, Baso # 0.03 I have reviewed the lab results: Yes - Medication Orders Current Medication Orders: Discontinued Medications Amoxicillin/Clavulanate Potassium (Augmentin 875 Mg-125 Mg Tab) 1 tab PO STAT STA PRN Reason: Protocol Stop: 06/08/17 15:48 Last Admin: 06/08/17 16:00 Dose: 1 tab Sodium Chloride (Sodium Chloride 0.9%) 500 mls @ 999 mls/hr IV .Q31M STA Stop: 06/08/17 15:12 Last Admin: 06/08/17 15:31 Dose: 999 mls/hr - Scribe Statement The provider has reviewed the documentation as recorded by the Maritza Perez Provider Scribe Attestation: All medical record entries made by the Scribe were at my direction and personally dictated by me. I have reviewed the chart and agree that the record accurately reflects my personal performance of the history, physical exam, medical decision making, and the department course for this patient. I have also personally directed, reviewed, and agree with the discharge instructions and disposition. Disposition/Present on Arrival - Present on Arrival Any Indicators Present on Arrival: No History of DVT/PE: No History of Uncontrolled Diabetes: No Urinary Catheter: No History of Decub. Ulcer: No History Surgical Site Infection Following: None - Disposition Have Diagnosis and Disposition been Completed?: Yes Diagnosis: Peritonsillar cellulitis, Peritonsillar abscess Disposition: HOME/ ROUTINE Disposition Time: 15:17 Patient Plan: Discharge Condition: IMPROVED Discharge Instructions (ExitCare): Cellulitis (ED), Peritonsillar Abscess (ED) Additional Instructions: Armenta, thank you for letting us take care of you today. Your provider was Dr. Caraballo. You were treated for Peritonsillar Abscess or cellulitis. The emergency medical care you received today was directed at your acute symptoms. If you were prescribed any medication, please fill it and take as directed. It may take several days for your symptoms to resolve. Return to the Emergency Department if your symptoms worsen, do not improve, or if you have any other problems. Please contact your doctor or call one of the physicians/clinics you have been referred to that are listed on the Patient Visit Information form that is included in your discharge packet. Bring any paperwork you were given at discharge with you along with any medications you are taking to your follow up visit. Our treatment cannot replace ongoing medical care by a primary care provider (PCP) outside of the emergency department. Thank you for allowing the [facility] team to be part of your care today. If you had an X-Ray or CT scan: A Radiologist will review the ED reading if any change in treatment is needed we will contact you. If you had a blood, urine, or wound culture: It will take several days for the results, if any change in treatment is needed we will contact you. If you had an STI test: It will take 48 hours for the results. Please call after 1 week if you have not heard back. Prescriptions: Amoxicillin/Clavulanate [Augmentin 875 MG-125 MG] 1 tab PO BID #20 tab Referrals: Chris Hernandez DO [Staff Provider] - Follow up with primary Forms: [employer] (Trinidadian), WORK NOTE
[2017-06-08] MEDS ORDERED: Sodium Chloride 0.9% 500 ML IV STA (14:42)
[2017-06-08 15:40] LABS: VENOUS BLOOD GAS BASE EXCESS 5.2 mmol/L (0.0-2.0); VENOUS BLOOD PH 7.35 (7.32-7.43)
[2017-06-08 15:44] LABS: BASO # 0.03 K/mm3 (0.0-2.0); BASO % 0.2 % (0.0-3.0); EOS # 0.1 (0.0-0.7); EOS % 0.7 % (1.5-5.0); GRAN # 8.69 (1.4-6.5); GRAN % 71.3 % (50.0-68.0); HEMATOCRIT 45.6 % (42.0-52.0); MEAN CELL VOLUME 88.2 fl (80.0-105.0); MEAN CORPUSCULAR HEMOGLOBIN 29.8 pg (25.0-35.0); MEAN CORPUSCULAR HGB CONC 33.8 g/dl (31.0-37.0); MEAN PLATELET VOLUME 9.9 fl (7.0-11.0); MONO # 1.4 (0.1-0.6); MONO % 11.8 % (1.0-6.0); RED CELL DISTRIBUTION WIDTH 13.7 % (11.5-14.5); WHITE BLOOD COUNT 12.2 10^3/ul (4.5-11.0)
[2017-06-08] MEDS ORDERED: Amoxicillin-Clav 875-125 mg Tab PO STA (15:47)
[2017-06-08 15:49] LABS: ALB/GLOB RATIO 1.3 (1.1-1.8); ALKALINE PHOSPHATASE 101 U/L (38-126); ALT/SGPT 37 U/L (7-56); AST/SGOT 29 U/L (17-59); BILIRUBIN,TOTAL 1.6 mg/dL (0.2-1.3); BLOOD UREA NITROGEN 14 mg/dL (7-21); CALCIUM 9.4 mg/dL (8.4-10.5); CARBON DIOXIDE 31 mmol/L (21-33); CHLORIDE 97 mmol/L (98-107); GFR AFRICAN-AMERICAN > 60; GLUCOSE,RANDOM 117 mg/dL (70-110); POTASSIUM 4.1 mmol/L (3.6-5.0); SODIUM 141 mmol/L (132-148); TOTAL PROTEIN 8.4 g/dL (5.8-8.3)
[2017-06-08 15:50] LABS: INR 1.03 (0.93-1.08); PARTIAL THROMBOPLASTIN TIME 27.5 Seconds (23.7-30.8)
[2017-06-08 15:55] VITALS: BP 140/85; PULSE 99; RESP 17
== END 2017-06-08 15:55 | disposition home or self-care (01) ==
LOC: ED 13:52
DX: J36 Peritonsillar abscess (principal); Z87.891 Personal history of nicotine dependence; I10 Essential (primary) hypertension
CPT/HCPCS: 80053; 82803; 85025; 85610; 85730; 87040; 99284; J7040

== ENCOUNTER 2017-06-28 23:57 | Emergency (ER) | payer MEDICAID ==
[2017-06-29 00:22] VITALS: BMI 41.4
[2017-06-29 00:29] VITALS: PULSE 88; TEMP 98.1; O2SAT 96
--- NOTE | 2017-06-29 01:07 | ED PDOC ---
Arrival/HPI - General Chief Complaint: ENT Problem Time Seen by Provider: 06/29/17 00:22 Historian: Patient - History of Present Illness Narrative History of Present Illness (Text): 06/29/17 01:05 57 yo M presents with concern for possible gum / tooth infection to the L bottom gumline, reports that pain started yesterday. Reports recently being Dx and Tx for peritonsillar abscess. 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 Otherwise denies any fever, chills, headache, sore throat, URI, ear pain, neck pain / swelling, dysphasia. Has no other complaints. Past Medical History - Provider Review Nursing Documentation Reviewed: Yes - Infectious Disease Hx of Infectious Diseases: None - Tetanus Immunization Tetanus Immunization: Unknown - Cardiac Hx Hypertension: Yes Hx Peripheral Edema: Yes (ble +1) - Pulmonary Hx Respiratory Disorders: Yes Hx Asthma: Yes Other/Comment: SMOKED 1/2 TO PPD QUIT - Neurological Hx Neurological Disorder: Yes Hx Dizziness: Yes - HEENT Other/Comment: h/o throat abscess - Renal Hx Renal Disorder: No - Endocrine/Metabolic Hx Endocrine Disorders: No - Hematological/Oncological Hx Blood Disorders: No - Integumentary Hx Dermatological Disorder: No - Musculoskeletal/Rheumatological Hx Back Pain: Yes Hx Falls: No - Gastrointestinal Hx Gastroesophageal Reflux: Yes - Genitourinary/Gynecological Hx Genitourinary Disorders: No - Psychiatric Hx Depression: No Hx Emotional Abuse: No Hx Physical Abuse: No Hx Substance Use: No - Surgical History Hx Appendectomy: Yes Other/Comment: CARD CATH. 2001 - Anesthesia Hx Anesthesia: Yes Hx Anesthesia Reactions: No Hx Malignant Hyperthermia: No - Suicidal Assessment Feels Threatened In Home Enviroment: No Family/Social History - Physician Review Nursing Documentation Reviewed: Yes Family/Social History: No Known Family HX Smoking Status: Former Smoker Hx Alcohol Use: No Hx Substance Use: No Hx Substance Use Treatment: No Allergies/Home Meds Allergies/Adverse Reactions: Allergies No Known Allergies Allergy (Verified 03/16/17 17:19) Home Medications: Home Meds Medication Instructions Recorded Confirmed Aspirin [Ecotrin] 81 mg PO DAILY 02/24/16 06/08/17 Metoprolol Tartrate [Lopressor] 25 mg PO DAILY 02/24/16 06/08/17 Cetirizine HCl [Zyrtec] 10 mg PO DAILY 03/08/17 06/08/17 Ergocalciferol (Vitamin D2) 1 cap PO QWK 03/08/17 06/08/17 [Vitamin D2] Famotidine [Pepcid] 20 mg PO DAILY 03/08/17 06/08/17 Hydrochlorothiazide [Microzide] 12.5 mg PO DAILY 03/08/17 06/08/17 amLODIPine [Norvasc] 5 mg PO DAILY 03/08/17 06/08/17 Review of Systems - Review of Systems Constitutional: Normal. absent: Fatigue, Weight Change, Fevers ENT: Normal, Other (toothache). absent: Rhinorrhea, Epistaxis, Sinus Congestion Respiratory: Normal. absent: SOB, Cough, Sputum Musculoskeletal: Normal. absent: Arthralgias, Back Pain, Neck Pain Skin: Normal. absent: Rash, Pruritis, Skin Lesions Neurological: Normal. absent: Headache, Dizziness, Focal Weakness Physical Exam Vital Signs Reviewed: Yes Vital Signs Temp Pulse Resp BP Pulse Ox 06/29/17 00:21 98.1 F 88 18 155/76 H 96 Appearance: Positive for: Well-Appearing, Non-Toxic, Comfortable, Other ( speaking in full sentences, no drooling) Pain Distress: None Mental Status: Positive for: Alert and Oriented X 3 - Systems Exam Head: Present: Atraumatic, Normocephalic Pupils: Present: PERRL Extroacular Muscles: Present: EOMI Conjunctiva: Present: Normal. No: Injected Ears: Present: Normal, NORMAL TM. No: Erythema, Normal Canal Mouth: Present: Moist Mucous Membranes, Normal Lips, Normal Tounge, Other ((-) tenderness to the floor of the mouth, (+) poor dentition with multiple missing teeth, (-) edema to the gumline, (-) tenderness to the gumline). No: Drooling, Trismus Pharnyx: Present: Normal. No: ERYTHEMA, EXUDATE, TONSILS ENLARGED, Peritonsilar Swelling, Uvular Deviation, Muffled/Hoarse Voice, Strider, Soft Palate/Uvular Edema Neck: Present: Normal Range of Motion, Trachea Midline. No: Meningeal Signs, MIDLINE TENDERNESS, Paraspinal Tenderness, Lymphadenopathy Respiratory/Chest: Present: Clear to Auscultation, Good Air Exchange. No: Respiratory Distress, Accessory Muscle Use, Wheezes Cardiovascular: Present: Regular Rate and Rhythm, Normal S1, S2. No: Murmurs Neurological: Present: GCS=15, CN II-XII Intact, Speech Normal Skin: Present: Warm, Dry, Normal Color. No: Rashes Medical Decision Making ED Course and Treatment: 06/29/17 01:09 57 yo M presents with concern for possible gum / tooth infection to the L bottom gumline, reports that pain started yesterday. DDx : toothache, consider dental abscess Plan : - clindamycin po Advsied to follow up with his dentist tomorrow without fail. Advised to take medication as prescribed. Return to the emergency room at any time for any new or worsening symptoms. Patient states he fully agrees with and understands discharge instructions. States that he agrees with the plan and disposition. Verbalized and repeated discharge instructions and plan. I have given the patient opportunity to ask any additional questions. 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 Disposition/Present on Arrival - Present on Arrival Any Indicators Present on Arrival: No History of DVT/PE: No History of Uncontrolled Diabetes: No Urinary Catheter: No History of Decub. Ulcer: No History Surgical Site Infection Following: None - Disposition Have Diagnosis and Disposition been Completed?: Yes Diagnosis: Toothache Disposition: HOME/ ROUTINE Disposition Time: 01:03 Patient Plan: Discharge Patient Problems: Current Active Problems Problem Status Onset Toothache Acute Condition: STABLE Discharge Instructions (ExitCare): Toothache (ED) Print Language: BHUTANESE Additional Instructions: Thank you for letting us take care of you today. You were treated for toothache. The emergency medical care you received today was directed at your acute symptoms. If you were prescribed any medication, please fill it and take as directed. It may take several days for your symptoms to resolve. Return to the Emergency Department if your symptoms worsen, do not improve, or if you have any other problems. Please contact your dentist tomorrow for re-evaluation and follow up / or call one of the physicians/clinics you have been referred to that are listed on the Patient Visit Information form that is included in your discharge packet. Bring any paperwork you were given at discharge with you along with any medications you are taking to your follow up visit. Our treatment cannot replace ongoing medical care by a primary care provider (PCP) outside of the emergency department. Thank you for allowing the [facility] team to be part of your care today. Prescriptions: Clindamycin [Cleocin] 300 mg PO TID #30 cap Forms: [employer] (Urdu), WORK NOTE
[2017-06-29 01:27] VITALS: BP 151/88; RESP 16
== END 2017-06-29 01:27 | disposition home or self-care (01) ==
LOC: ED 23:57
DX: K08.89 Other specified disorders of teeth and supporting structures (principal)

== ENCOUNTER 2017-07-01 15:40 | Emergency (ER) | payer MEDICAID ==
[2017-07-01 15:40] VITALS: BMI 41.4
[2017-07-01] MEDS ORDERED: Labetalol 5 mg/ml Inj 20ML IV STA (16:21)
--- NOTE | 2017-07-01 16:28 | ED PDOC ---
"Arrival/HPI - General Chief Complaint: Dizziness/Lightheaded Time Seen by Provider: 07/01/17 16:04 Historian: Patient - History of Present Illness Narrative History of Present Illness (Text): 07/01/17 16:23 57 yo male with h/o HTN, presents to the ED c/o that his blood pressure is high. This morning he felt a mild headache 2/10 and a little lightheaded. Now his symptoms are improved but his BP is still elevated at 172/82. He is complaint with his medications and has kept a good diet. He did have low sodium food the past 2 days. He denies any numbness or weakness. No visual complaints. No trouble speaking. No problems walking. No neck, back, chest or abdominal pain. No urinary complaints. Past Medical History - Provider Review Nursing Documentation Reviewed: Yes - Infectious Disease Hx of Infectious Diseases: None - Tetanus Immunization Tetanus Immunization: Unknown - Cardiac Hx Hypertension: Yes Hx Peripheral Edema: Yes (ble +1) - Pulmonary Hx Respiratory Disorders: Yes Hx Asthma: Yes Other/Comment: SMOKED 1/2 TO PPD QUIT - Neurological Hx Neurological Disorder: Yes Hx Dizziness: Yes - HEENT Other/Comment: h/o throat abscess - Renal Hx Renal Disorder: No - Endocrine/Metabolic Hx Endocrine Disorders: No - Hematological/Oncological Hx Blood Disorders: No - Integumentary Hx Dermatological Disorder: No - Musculoskeletal/Rheumatological Hx Back Pain: Yes Hx Falls: No - Gastrointestinal Hx Gastroesophageal Reflux: Yes - Genitourinary/Gynecological Hx Genitourinary Disorders: No - Psychiatric Hx Depression: No Hx Emotional Abuse: No Hx Physical Abuse: No Hx Substance Use: No - Surgical History Hx Appendectomy: Yes Other/Comment: CARD CATH. 2001 - Anesthesia Hx Anesthesia: Yes Hx Anesthesia Reactions: No Hx Malignant Hyperthermia: No - Suicidal Assessment Feels Threatened In Home Enviroment: No Family/Social History - Physician Review Nursing Documentation Reviewed: Yes Family/Social History: No Known Family HX Smoking Status: Former Smoker Hx Alcohol Use: No Hx Substance Use: No Hx Substance Use Treatment: No Allergies/Home Meds Allergies/Adverse Reactions: Allergies No Known Allergies Allergy (Verified 07/01/17 16:12) Home Medications: Home Meds Medication Instructions Recorded Confirmed Aspirin [Ecotrin] 81 mg PO DAILY 02/24/16 07/01/17 Metoprolol Tartrate [Lopressor] 25 mg PO DAILY 02/24/16 07/01/17 Cetirizine HCl [Zyrtec] 10 mg PO DAILY 03/08/17 07/01/17 Ergocalciferol (Vitamin D2) 1 cap PO QWK 03/08/17 07/01/17 [Vitamin D2] Famotidine [Pepcid] 20 mg PO DAILY 03/08/17 07/01/17 Hydrochlorothiazide [Microzide] 12.5 mg PO DAILY 03/08/17 07/01/17 amLODIPine [Norvasc] 5 mg PO DAILY 03/08/17 07/01/17 Albuterol HFA [Ventolin HFA 90 1 puff INH Q3 PRN 07/01/17 07/01/17 mcg/actuation (8 g)] Review of Systems - Physician Review All systems were reviewed & negative as marked: Yes - Review of Systems Constitutional: Normal Eyes: Normal ENT: Normal Respiratory: Normal Cardiovascular: Normal Gastrointestinal: Normal Genitourinary Male: Normal Musculoskeletal: Normal Skin: Normal Neurological: Headache. absent: Dizziness, Focal Weakness, Speech Changes, Facial Droop, Disequilibrium Endocrine: Normal Hemo/Lymphatic: Normal Psychiatric: Normal Physical Exam Vital Signs Temp Pulse Resp BP Pulse Ox 07/01/17 17:28 64 18 155/85 H 94 L 07/01/17 16:43 69 157/77 H 07/01/17 16:06 98.1 F 80 20 172/82 H 99 Temperature: Afebrile Blood Pressure: Hypertensive Pulse: Regular Respiratory Rate: Normal Appearance: Positive for: Well-Appearing, Non-Toxic, Comfortable Pain Distress: None Mental Status: Positive for: Alert and Oriented X 3 - Systems Exam Head: Present: Atraumatic, Normocephalic Pupils: Present: PERRL Extroacular Muscles: Present: EOMI Conjunctiva: Present: Normal Mouth: Present: Moist Mucous Membranes Neck: Present: Normal Range of Motion Respiratory/Chest: Present: Clear to Auscultation, Good Air Exchange. No: Respiratory Distress, Accessory Muscle Use Cardiovascular: Present: Regular Rate and Rhythm, Normal S1, S2. No: Murmurs Abdomen: Present: Normal Bowel Sounds. No: Tenderness, Distention, Peritoneal Signs Back: Present: Normal Inspection Upper Extremity: Present: Normal Inspection. No: Cyanosis, Edema Lower Extremity: Present: Normal Inspection. No: Edema Neurological: Present: GCS=15, CN II-XII Intact, Speech Normal, Motor Func Grossly Intact, Normal Sensory Function, Normal Cerebellar Funct, Norm Deep Tendon Reflexes, Gait Normal, Memory Normal, Normal 2Pt Descrimination Skin: Present: Warm, Dry, Normal Color. No: Rashes Psychiatric: Present: Alert, Oriented x 3, Normal Insight, Normal Concentration Medical Decision Making ED Course and Treatment: 07/01/17 16:30 57 yo male with headache and lightheadedness r/o hypertensive urgency -- Labs -- EKG -- Labetolol -- reevaluate and disposition 07/01/17 16:30 NSR at [address] elevations, nl intervals 07/01/17 17:37 Patient feels so much better. No longer having symptoms. Blood pressure improved. Patient will continue a good low sodium diet. He will make sure to follow up with Dr. Siu. - Lab Interpretations Lab Results: 07/01/17 16:20 07/01/17 16:20 Lab Results 07/01/17 16:20: Sodium 141, Potassium 3.8, Chloride 103, Carbon Dioxide 28, Anion Gap 14, BUN 15, Creatinine 0.7 L, Est GFR ( Amer) > 60, Est GFR ( Non-Af Amer) > 60, Random Glucose 104, Calcium 9.1, Magnesium 1.8, Total Bilirubin 0.8, AST 36, ALT 41, Alkaline Phosphatase 80, Lactate Dehydrogenase 463, Total Creatine Kinase 202, Troponin I < 0.01, Total Protein 7.3, Albumin 4.2, Globulin 3.0, Albumin/Globulin Ratio 1.4 07/01/17 16:20: WBC 6.6 D, RBC 4.64, Hgb 13.7 L, Hct 40.9 L, MCV 88.1, MCH 29.5 , MCHC 33.5, RDW 13.5, Plt Count 197, MPV 10.3, Gran % 60.4, Lymph % (Auto) 26.6 , [place] % (Auto) 9.3 H, Eos % (Auto) 2.9, Baso % (Auto) 0.8, Gran # 3.99, Lymph # 1.8, Person # 0.6, Eos # 0.2, Baso # 0.05 - Medication Orders Current Medication Orders: Discontinued Medications Acetaminophen (Tylenol 325mg Tab) 650 mg PO STAT STA Stop: 07/01/17 16:22 Last Admin: 07/01/17 16:44 Dose: 650 mg Labetalol HCl (Trandate) 10 mg IV STAT STA Stop: 07/01/17 16:22 Last Admin: 07/01/17 16:43 Dose: 10 mg eMAR Start Stop Document 07/01/17 16:43 CNR (Rec: 07/01/17 16:44 CNR [id number]) Intravenous Solution Start Date 07/01/17 Start Time 16:44 MAR Pulse and Blood Pressure Document 07/01/17 16:43 CNR (Rec: 07/01/17 16:44 CNR [id number]) Pulse Pulse Rate (60-90) 69 Blood Pressure Blood Pressure (100/60-150/90) 157/77 Disposition/Present on Arrival - Present on Arrival Any Indicators Present on Arrival: No History of DVT/PE: No History of Uncontrolled Diabetes: No Urinary Catheter: No History of Decub. Ulcer: No History Surgical Site Infection Following: None - Disposition Have Diagnosis and Disposition been Completed?: Yes Diagnosis: Hypertension Disposition: HOME/ ROUTINE Disposition Time: 17:38 Patient Plan: Discharge Patient Problems: Current Active Problems Problem Status Onset Hypertension Acute Condition: IMPROVED Discharge Instructions (ExitCare): Hypertension (ED) Additional Instructions: Mr Armenta, thank you for letting us take care of you today. Your provider was Dr. Caraballo. You were treated for Hypertension. The emergency medical care you received today was directed at your acute symptoms. If you were prescribed any medication, please fill it and take as directed. It may take several days for your symptoms to resolve. Return to the Emergency Department if your symptoms worsen, do not improve, or if you have any other problems. Please contact your doctor or call one of the physicians/clinics you have been referred to that are listed on the Patient Visit Information form that is included in your discharge packet. Bring any paperwork you were given at discharge with you along with any medications you are taking to your follow up visit. Our treatment cannot replace ongoing medical care by a primary care provider (PCP) outside of the emergency department. Thank you for allowing the [facility] team to be part of your care today. If you had an X-Ray or CT scan: A Radiologist will review the ED reading if any change in treatment is needed we will contact you. If you had a blood, urine, or wound culture: It will take several days for the results, if any change in treatment is needed we will contact you. If you had an STI test: It will take 48 hours for the results. Please call after 1 week if you have not heard back. Referrals: Manjit Siu MD [Family Provider] - Follow up with primary Forms: [employer] (Arabic), WORK NOTE"
[2017-07-01 16:34] VITALS: TEMP 98.1
[2017-07-01 17:06] LABS: BASO # 0.05 K/mm3 (0.0-2.0); BASO % 0.8 % (0.0-3.0); EOS # 0.2 (0.0-0.7); EOS % 2.9 % (1.5-5.0); GRAN # 3.99 (1.4-6.5); GRAN % 60.4 % (50.0-68.0); HEMATOCRIT 40.9 % (42.0-52.0); LYMPH # 1.8 (1.2-3.4); LYMPH % 26.6 % (22.0-35.0); MEAN CELL VOLUME 88.1 fl (80.0-105.0); MEAN CORPUSCULAR HEMOGLOBIN 29.5 pg (25.0-35.0); MEAN CORPUSCULAR HGB CONC 33.5 g/dl (31.0-37.0); MEAN PLATELET VOLUME 10.3 fl (7.0-11.0); MONO # 0.6 (0.1-0.6); MONO % 9.3 % (1.0-6.0); RED CELL DISTRIBUTION WIDTH 13.5 % (11.5-14.5); WHITE BLOOD COUNT 6.6 10^3/ul (4.5-11.0)
[2017-07-01 17:17] LABS: ALB/GLOB RATIO 1.4 (1.1-1.8); ALKALINE PHOSPHATASE 80 U/L (38-126); ALT/SGPT 41 U/L (7-56); AST/SGOT 36 U/L (17-59); BILIRUBIN,TOTAL 0.8 mg/dL (0.2-1.3); BLOOD UREA NITROGEN 15 mg/dL (7-21); CALCIUM 9.1 mg/dL (8.4-10.5); CARBON DIOXIDE 28 mmol/L (21-33); CHLORIDE 103 mmol/L (98-107); GFR AFRICAN-AMERICAN > 60; GLUCOSE,RANDOM 104 mg/dL (70-110); MAGNESIUM 1.8 mg/dL (1.7-2.2); POTASSIUM 3.8 mmol/L (3.6-5.0); SODIUM 141 mmol/L (132-148); TOTAL PROTEIN 7.3 g/dL (5.8-8.3)
[2017-07-01 17:29] VITALS: BP 155/85; PULSE 64; RESP 18; O2SAT 94
[2017-07-01 17:34] LABS: TROPONIN I < 0.01 ng/mL
--- NOTE | 2017-07-02 19:52 | CARD ---
APPROVED REPORT EKG Measurement Heart [id number] <Conclusion> Normal sinus rhythm Normal ECG
== END 2017-07-01 17:50 | disposition home or self-care (01) ==
LOC: ED 15:40
DX: I10 Essential (primary) hypertension (principal); Z87.891 Personal history of nicotine dependence

== ENCOUNTER 2017-12-03 10:57 | Emergency (ER) | payer MEDICAID ==
[2017-12-03 10:57] VITALS: BMI 41.4
--- NOTE | 2017-12-03 11:05 | ED PDOC ---
Arrival/HPI - General Time Seen by Provider: 12/03/17 11:04 Historian: Patient - History of Present Illness Narrative History of Present Illness (Text): 12/03/17 11:05 57 y/o male, pmh including htn/hyperlipidemia/peritonsillar abscess, nkda, c/o throat pain with painful swallowing started yesterday. Pt. stated he started to have painful swallowing last night, aching pain, painful to swallow but able to drink and eat with no difficulty, no fever or chills, doesn't feel like this is previous peritonsillary abscess 02/2017 which they drained with no purulant discharge but bloody), no night sweat, no muffling sound, no palpitation or chest pain, no night sweat, no rash, no other medical or psychological complaints. Past Medical History - Provider Review Nursing Documentation Reviewed: Yes - Infectious Disease Hx of Infectious Diseases: None - Tetanus Immunization Tetanus Immunization: Unknown - Cardiac Hx Hypertension: Yes Hx Peripheral Edema: Yes (ble +1) - Pulmonary Hx Respiratory Disorders: Yes Hx Asthma: Yes Other/Comment: SMOKED 1/2 TO PPD QUIT - Neurological Hx Neurological Disorder: Yes Hx Dizziness: Yes - HEENT Other/Comment: h/o throat abscess - Renal Hx Renal Disorder: No - Endocrine/Metabolic Hx Endocrine Disorders: No - Hematological/Oncological Hx Blood Disorders: No - Integumentary Hx Dermatological Disorder: No - Musculoskeletal/Rheumatological Hx Back Pain: Yes Hx Falls: No - Gastrointestinal Hx Gastroesophageal Reflux: Yes - Genitourinary/Gynecological Hx Genitourinary Disorders: No - Psychiatric Hx Depression: No Hx Emotional Abuse: No Hx Physical Abuse: No Hx Substance Use: No - Surgical History Hx Appendectomy: Yes Other/Comment: CARD CATH. 2001 - Anesthesia Hx Anesthesia: Yes Hx Anesthesia Reactions: No Hx Malignant Hyperthermia: No - Suicidal Assessment Feels Threatened In Home Enviroment: No Family/Social History - Physician Review Nursing Documentation Reviewed: Yes Family/Social History: Unknown Family HX Smoking Status: Former Smoker Hx Alcohol Use: No Hx Substance Use: No Hx Substance Use Treatment: No Allergies/Home Meds Allergies/Adverse Reactions: Allergies No Known Allergies Allergy (Verified 12/03/17 11:06) Review of Systems - Review of Systems Constitutional: absent: Fatigue, Fevers Eyes: absent: Vision Changes ENT: Sore Throat. absent: Hearing Changes, Rhinorrhea Respiratory: absent: SOB, Cough, Sputum, Wheezing Cardiovascular: absent: Chest Pain Gastrointestinal: absent: Abdominal Pain, Diarrhea, Nausea, Vomiting Musculoskeletal: absent: Arthralgias Skin: absent: Rash, Pruritis Neurological: absent: Headache, Dizziness Psychiatric: absent: Anxiety, Depression, Suicidal Ideation Physical Exam Vital Signs Reviewed: Yes Vital Signs Temp Pulse Resp BP Pulse Ox 12/03/17 11:00 97.8 F 73 18 136/80 96 Temperature: Afebrile Blood Pressure: Normal Pulse: Regular Respiratory Rate: Normal Appearance: Positive for: Well-Appearing, Non-Toxic, Comfortable Pain Distress: Moderate Mental Status: Positive for: Alert and Oriented X 3 - Systems Exam Head: Present: Atraumatic, Normocephalic Pupils: Present: PERRL Extroacular Muscles: Present: EOMI Conjunctiva: Present: Normal Ears: Present: NORMAL TM, Normal Canal. No: Erythema Mouth: Present: Moist Mucous Membranes Pharnyx: Present: ERYTHEMA, EXUDATE, TONSILS ENLARGED (lt. tonsil). No: Peritonsilar Swelling, Uvular Deviation, Muffled/Hoarse Voice, Strider, Soft Palate/Uvular Edema Nose (External): Present: Atraumatic. No: Abrasion, Contusion, Laceration Nose (Internal): Present: Normal Inspection, No Active Bleeding. No: Rhinorrhea , Septal Hematoma, Epistaxis Neck: Present: Normal Range of Motion, Lymphadenopathy (+lt. anterior cervical) . No: Meningeal Signs Respiratory/Chest: Present: Clear to Auscultation, Good Air Exchange. No: Respiratory Distress, Accessory Muscle Use Cardiovascular: Present: Regular Rate and Rhythm, Normal S1, S2. No: Murmurs Abdomen: Present: Normal Bowel Sounds. No: Tenderness, Distention, Peritoneal Signs, Rebound, Guarding Back: Present: Normal Inspection Upper Extremity: Present: Normal Inspection. No: Cyanosis, Edema Lower Extremity: Present: Normal Inspection. No: Edema Neurological: Present: GCS=15, CN II-XII Intact, Speech Normal Skin: Present: Warm, Dry, Normal Color. No: Rashes Psychiatric: Present: Alert, Oriented x 3, Normal Insight, Normal Concentration Medical Decision Making ED Course and Treatment: 12/03/17 11:16 -toradol/decadron/augmentin -observe and reassess 12/03/17 12:06 -Pt. feels much better, no muffling, eating and drinking well. -Discharge home with augmentin, motrin, soft food diet, stay hydrate, follow up with your own pmd and ENT within 2 days, return to the ER for any new or worsening signs or symptoms. - Medication Orders Current Medication Orders: Discontinued Medications Amoxicillin/Clavulanate Potassium (Augmentin 875 Mg-125 Mg Tab) 1 tab PO STAT STA PRN Reason: Protocol Stop: 12/03/17 11:12 Last Admin: 12/03/17 11:34 Dose: 1 tab Dexamethasone (Decadron Inj) 8 mg IM STAT STA Stop: 12/03/17 11:12 Last Admin: 12/03/17 11:35 Dose: 8 mg IM Administration Charges Document 12/03/17 11:35 EQ (Rec: 12/03/17 11:35 EQ [id number]) Injection Site MAR Injection Site Left Deltoid Charges for Administration # of IM Administrations 1 Ketorolac Tromethamine (Toradol) 60 mg IM STAT STA Stop: 12/03/17 11:12 Last Admin: 12/03/17 11:34 Dose: 60 mg MAR Pain Assessment Document 12/03/17 11:34 EQ (Rec: 12/03/17 11:35 EQ [id number]) Pain Reassessment Is this a pain reassessment? No Sleep Is patient sleeping during reassessment? No Presence of Pain Presence of Pain Yes IM Administration Charges Document 12/03/17 11:34 EQ (Rec: 12/03/17 11:35 EQ [id number]) Charges for Administration # of IM Administrations 1 - PA / SUPERVISOR WET ROOM / Resident Statement MD/DO has reviewed & agrees with the documentation as recorded. Disposition/Present on Arrival - Present on Arrival Any Indicators Present on Arrival: No History of DVT/PE: No History of Uncontrolled Diabetes: No Urinary Catheter: No History of Decub. Ulcer: No History Surgical Site Infection Following: None - Disposition Have Diagnosis and Disposition been Completed?: Yes Diagnosis: Tonsillitis Disposition: HOME/ ROUTINE Disposition Time: 11:17 Patient Plan: Discharge Patient Problems: Current Active Problems Problem Status Onset Tonsillitis Acute Condition: IMPROVED Additional Instructions: -Discharge home with augmentin, motrin, soft food diet, stay hydrate, follow up with your own pmd and ENT within 2 days, return to the ER for any new or worsening signs or symptoms. Prescriptions: Amoxicillin/Clavulanate [Augmentin 875 MG-125 MG] 1 tab PO BID #20 tab Ibuprofen [Motrin Tab] 600 mg PO QID PRN #30 tab PRN Reason: Other Referrals: Steve Wood DO [Staff Provider] - Follow up with primary [facility] [Outside] - Follow up with primary Forms: WORK NOTE
[2017-12-03 11:06] VITALS: RESP 18; TEMP 97.8
[2017-12-03] MEDS ORDERED: Amoxicillin-Clav 875-125 mg Tab PO STA (11:11)
[2017-12-03 12:12] VITALS: BP 136/77; PULSE 87; O2SAT 98
== END 2017-12-03 12:11 | disposition home or self-care (01) ==
LOC: ED 10:57
DX: J03.90 Acute tonsillitis, unspecified (principal); Z87.891 Personal history of nicotine dependence
CPT/HCPCS: 96372; 99283; J1100; J1885

== ENCOUNTER 2018-03-31 16:05 | Observation (INO) | payer MEDICAID ==
[2018-03-31 16:20] VITALS: BMI 41.3
[2018-03-31] MEDS ORDERED: Sodium Chloride 0.9% 500 ML IV ONE (16:30)
[2018-03-31] MEDS ORDERED: cefTRIAXone 1 gm 1 GM/100 ML BAG IVPB STA (16:31)
--- NOTE | 2018-03-31 16:35 | ED PDOC ---
Arrival/HPI - General Chief Complaint: ENT Problem Time Seen by Provider: 03/31/18 16:07 Historian: Patient - History of Present Illness Time/Duration: Other (3 days) Symptom Onset: Gradual Symptom Course: Worsening Severity Level: Moderate Activities at Onset: Rest Associated Symptoms (Text): 03/31/18 16:34 Patient complains of a three-day history of worsening sore throat, especially on the left. No dyspnea or dysphagia. He's been feeling feverish with chills. No cough congestion or URI. His history of multiple previous throat infections including peritonsillar abscess. Past Medical History - Infectious Disease Hx of Infectious Diseases: None - Tetanus Immunization Tetanus Immunization: Unknown - Cardiac Hx Hypertension: Yes Hx Peripheral Edema: Yes (ble +1) - Pulmonary Hx Respiratory Disorders: Yes Hx Asthma: Yes Other/Comment: SMOKED 1/2 TO PPD QUIT - Neurological Hx Neurological Disorder: Yes Hx Dizziness: Yes - HEENT Other/Comment: h/o throat abscess - Renal Hx Renal Disorder: No - Endocrine/Metabolic Hx Endocrine Disorders: No - Hematological/Oncological Hx Blood Disorders: No - Integumentary Hx Dermatological Disorder: No - Musculoskeletal/Rheumatological Hx Back Pain: Yes Hx Falls: No - Gastrointestinal Hx Gastroesophageal Reflux: Yes - Genitourinary/Gynecological Hx Genitourinary Disorders: No - Psychiatric Hx Depression: No Hx Emotional Abuse: No Hx Physical Abuse: No Hx Substance Use: No - Surgical History Hx Appendectomy: Yes Other/Comment: CARD CATH. 2001 - Anesthesia Hx Anesthesia: Yes Hx Anesthesia Reactions: No Hx Malignant Hyperthermia: No - Suicidal Assessment Feels Threatened In Home Enviroment: No Family/Social History - Physician Review Nursing Documentation Reviewed: Yes Family/Social History: Unknown Family HX Smoking Status: Former Smoker Hx Alcohol Use: No Hx Substance Use: No Hx Substance Use Treatment: No Allergies/Home Meds Allergies/Adverse Reactions: Allergies No Known Allergies Allergy (Verified 03/31/18 16:20) Home Medications: Home Meds Medication Instructions Recorded Confirmed Unobtainable 03/31/18 03/31/18 Review of Systems - Physician Review All systems were reviewed & negative as marked: Yes - Review of Systems Constitutional: Fatigue, Fevers ENT: Sore Throat. absent: Voice Changes, Rhinorrhea, Epistaxis, Sinus Congestion Respiratory: Normal Cardiovascular: Normal Gastrointestinal: Normal Neurological: Normal Physical Exam Vital Signs Temp Pulse Resp BP Pulse Ox 03/31/18 16:20 100.1 F H 100 H 18 167/91 H 97 Temperature: Febrile Blood Pressure: Hypertensive Pulse: Regular Respiratory Rate: Normal Appearance: Positive for: Well-Appearing, Non-Toxic, Uncomfortable Pain Distress: Moderate Mental Status: Positive for: Alert and Oriented X 3 - Systems Exam Head: Present: Atraumatic, Normocephalic Pupils: Present: PERRL Extroacular Muscles: Present: EOMI Conjunctiva: Present: Normal Ears: Present: NORMAL TM, Normal Canal. No: Erythema Mouth: Present: Moist Mucous Membranes Pharnyx: Present: ERYTHEMA, EXUDATE, TONSILS ENLARGED, Peritonsilar Swelling, Other (left peritonsilar abscess) Neck: Present: Normal Range of Motion, Lymphadenopathy. No: Meningeal Signs, MIDLINE TENDERNESS, Paraspinal Tenderness Respiratory/Chest: Present: Clear to Auscultation, Good Air Exchange, Decreased Breath Sounds. No: Respiratory Distress, Accessory Muscle Use Cardiovascular: Present: Regular Rate and Rhythm, Normal S1, S2, Tachycardic. No: Murmurs Abdomen: No: Tenderness, Distention, Peritoneal Signs, Rebound, Guarding Upper Extremity: Present: Normal Inspection. No: Cyanosis, Edema Lower Extremity: Present: Normal Inspection. No: Edema Neurological: Present: GCS=15, CN II-XII Intact, Speech Normal, Motor Func Grossly Intact Skin: Present: Warm, Dry, Normal Color. No: Rashes Medical Decision Making ED Course and Treatment: 03/31/18 17:[address] Siu, who refers to the hospitalist for admission. Discussed with Dr Cunningham who will see in consult. Discussed with Dr Young, who accpts to his service. - Lab Interpretations Lab Results: 03/31/18 16:40 03/31/18 16:40 Lab Results 03/31/18 16:40: Sodium 140, Chloride 101, Potassium 4.3, Carbon Dioxide 28, Anion Gap 16, BUN 12, Creatinine 0.7 L, Est GFR ( Amer) > 60, Est GFR ( Non-Af Amer) > 60, Random Glucose 111 H, Calcium 9.0, Magnesium 2.0, Total Bilirubin 1.4 H, AST 39, ALT 56, Alkaline Phosphatase 88, Total Protein 8.0, Albumin 4.3, Globulin 3.6, Albumin/Globulin Ratio 1.2 03/31/18 16:40: pO2 49, VBG pH 7.40, VBG pCO2 49.0, VBG HCO3 30.4 H, VBG Total CO2 31.9 H, VBG O2 Sat (Calc) 87.1 H, VBG Base Excess 4.5 H, VBG Potassium 4.1, Sodium 138.0, Chloride 103.0, Glucose 117 H, Lactate 1.2, FiO2 21.0, Venous Blood Potassium 4.1 03/31/18 16:40: WBC 11.9 H D, RBC 5.08, Hgb 15.0, Hct 44.8, MCV 88.2, MCH 29.5, MCHC 33.5, RDW 13.7, Plt Count 185, MPV 10.0, Gran % 72.7 H, Lymph % (Auto) 15.9 L, [place] % (Auto) 9.9 H, Eos % (Auto) 1.2 L, Baso % (Auto) 0.3, Gran # 8.63 H, Lymph # (Auto) 1.9, [place] # (Auto) 1.2 H, Eos # (Auto) 0.1, Baso # (Auto) 0.04 - Medication Orders Current Medication Orders: Sodium Chloride (Sodium Chloride 0.9%) 500 mls @ 500 mls/hr IV ONCE ONE Stop: 03/31/18 17:29 Last Admin: 03/31/18 16:56 Dose: 500 mls/hr eMAR Start Stop Document 03/31/18 16:56 GMD (Rec: 03/31/18 16:56 D [id number]) Intravenous Solution Start Date 03/31/18 Start Time 16:56 End Date 03/31/18 End time 17:56 Total Infusion Time 60 Discontinued Medications Dexamethasone (Decadron Inj) 10 mg IVP STAT STA Stop: 03/31/18 16:31 Last Admin: 03/31/18 16:56 Dose: 10 mg IVP Administration Document 03/31/18 16:56 GMD (Rec: 03/31/18 16:56 D [id number]) Charges for Administration # of IVP Administrations 1 Ceftriaxone Sodium (Rocephin 1 Gram Ivpb) 1 gm in 100 mls @ 200 mls/hr IVPB STAT STA PRN Reason: Protocol Stop: 03/31/18 17:00 Disposition/Present on Arrival - Present on Arrival Any Indicators Present on Arrival: No History of DVT/PE: No History of Uncontrolled Diabetes: No Urinary Catheter: No History of Decub. Ulcer: No History Surgical Site Infection Following: None - Disposition Have Diagnosis and Disposition been Completed?: Yes Diagnosis: Peritonsillar abscess Disposition: HOSPITALIZED Disposition Time: 17:18 Patient Plan: Observation Condition: GOOD Forms: [employer] (Maltese)
[2018-03-31 17:02] LABS: VENOUS BLOOD GAS BASE EXCESS 4.5 mmol/L (0.0-2.0); VENOUS BLOOD GAS PO2 49 mm/Hg (30-55)
[2018-03-31 17:05] LABS: BASO # 0.04 K/mm3 (0.0-2.0); BASO % 0.3 % (0.0-3.0); EOS # 0.1 (0.0-0.7); EOS % 1.2 % (1.5-5.0); GRAN # 8.63 (1.4-6.5); GRAN % 72.7 % (50.0-68.0); LYMPH # 1.9 (1.2-3.4); LYMPH % 15.9 % (22.0-35.0); MEAN CELL VOLUME 88.2 fl (80.0-105.0); MEAN CORPUSCULAR HEMOGLOBIN 29.5 pg (25.0-35.0); MEAN CORPUSCULAR HGB CONC 33.5 g/dl (31.0-37.0); MONO # 1.2 (0.1-0.6); MONO % 9.9 % (1.0-6.0); RBC 5.08 10^6/uL (3.5-6.1); RED CELL DISTRIBUTION WIDTH 13.7 % (11.5-14.5); WHITE BLOOD COUNT 11.9 10^3/ul (4.5-11.0)
[2018-03-31 17:14] LABS: ALB/GLOB RATIO 1.2 (1.1-1.8); ALBUMIN 4.3 g/dL (3.0-4.8); ALT/SGPT 56 U/L (7-56); AST/SGOT 39 U/L (17-59); BLOOD UREA NITROGEN 12 mg/dL (7-21); GFR AFRICAN-AMERICAN > 60; GFR NON-AFRICAN AMERICAN > 60
[2018-03-31] MEDS ORDERED: AMPicillin/Sulbactam 1.5gm 1 GM/100 ML BAG IVPB SCH (18:45)
--- NOTE | 2018-03-31 18:52 | CP.PCM.HP ---
<Sadie Savage - Last Filed: 03/31/18 19:47> History of Present Illness - History of Present Illness History of Present Illness: Patient is a 57 yo male with PMH recurrent peritonsillar abscesses, HTN, hypercholesterolemia, seasonal allergies, asthma presenting to ED with chief complaint of sore throat. Rates the severity of his symptoms +2/10. This began about 3 days ago. He mentioned that due to his history of peritonsillar abscesses, his symptom prompted his arrival at the ED. Patient states that previously his abscess has been drained. He is comfortable eating and drinking. Had sandwich earlier in the day without any trouble. Admits to fever and chills. Denies headache, changes in hearing, dysphagia, drooling, changes in voice, chest pain, shortness of breath, nausea, vomiting, abdominal pain, changes in bowel habits, urinary frequency. PMH: peritonsillar abscess, HTN, hypercholesterolemia, seasonal allergies, asthma Past surgical: appendectomy Social history: occasional alcohol. Denies use of tobacco products or recreational drugs Family history: Mother (, carotid artery stenosis). Father (, colon cancer) Home medications: aspirin, metoprolol, hctz, ergocalciferol, singulair, norvasc PMD: Dr. Siu Present on Admission - Present on Admission Any Indicators Present on Admission: No History of DVT/PE: No History of Uncontrolled Diabetes: No Urinary Catheter: No Decubitus Ulcer Present: No Review of Systems - Constitutional Constitutional: Fever. absent: Fatigue, Night Sweats, Weakness - EENT Eyes: absent: Change in Vision Ears: absent: Abnormal Hearing Nose/Mouth/Throat: Sore Throat. absent: Nasal Obstruction, Nasal Trauma, Dysphagia, Hoarsness, Tongue Swelling, Facial Pain - Cardiovascular Cardiovascular: absent: Chest Pain, Dyspnea, Palpitations - Respiratory Respiratory: absent: Cough, Dyspnea, Excessive Mucous Production - Gastrointestinal Gastrointestinal: absent: Abdominal Pain, Change in Bowel Habits, Constipation, Diarrhea, Dysphagia, Nausea, Vomiting - Genitourinary Genitourinary: absent: Dysuria, Urinary Urgency - Musculoskeletal Musculoskeletal: absent: Myalgias, Neck Pain, Numbness - Integumentary Integumentary: absent: Lesions, New Lesions, Rash, Skin Ulcer - Neurological Neurological: absent: Abnormal Speech, Dizziness, Frequent Falls, Loss of Vision Past Patient History - Infectious Disease Hx of Infectious Diseases: None - Tetanus Immunizations Tetanus Immunization: Unknown - Past Medical History & Family History Past Medical History?: Yes Past Family History: Reviewed and not pertinent - Past Social History Smoking Status: Former Smoker Alcohol: Social Drugs: Denies - CARDIAC Hx Hypercholesterolemia: Yes Hx Hypertension: Yes Hx Peripheral Edema: Yes (ble +1) - PULMONARY Hx Respiratory Disorders: Yes Hx Asthma: Yes Other/Comment: SMOKED 1/2 TO PPD QUIT - NEUROLOGICAL Hx Neurological Disorder: Yes Hx Dizziness: Yes - HEENT Other/Comment: h/o throat abscess - RENAL Hx Chronic Kidney Disease: No - ENDOCRINE/METABOLIC Hx Endocrine Disorders: No - HEMATOLOGICAL/ONCOLOGICAL Hx Blood Disorders: No - INTEGUMENTARY Hx Dermatological Problems: No - MUSCULOSKELETAL/RHEUMATOLOGICAL Hx Back Pain: Yes Hx Falls: No - GASTROINTESTINAL Hx Gastroesophageal Reflux: Yes - GENITOURINARY/GYNECOLOGICAL Hx Genitourinary Disorders: No - PSYCHIATRIC Hx Depression: No Hx Emotional Abuse: No Hx Physical Abuse: No Hx Substance Use: No - SURGICAL HISTORY Hx Appendectomy: Yes Other/Comment: CARD CATH. 2001 - ANESTHESIA Hx Anesthesia: Yes Hx Anesthesia Reactions: No Hx Malignant Hyperthermia: No Meds Allergies/Adverse Reactions: Allergies Allergy/AdvReac Type Severity Reaction Status Date / Time No Known Allergies Allergy Verified 03/31/18 17:45 Physical Exam - Constitutional Appears: Non-toxic, No Acute Distress - Head Exam Head Exam: ATRAUMATIC, NORMOCEPHALIC - Eye Exam Eye Exam: EOMI, Normal appearance, PERRL Pupil Exam: NORMAL ACCOMODATION, PERRL - ENT Exam ENT Exam: Mucous Membranes Moist, Normal Exam, Normal External Ear Exam - Expanded ENT Exam Expanded Mouth exam: tongue normal. absent: drooling, muffled voice Throat exam: Peritonsillar Mass Left, Tonsillar Erythema, Tonsillar Exudate - Neck Exam Neck exam: Positive for: Full Rom, Normal Inspection. Negative for: Lymphadenopathy, Tenderness, Thyromegaly - Respiratory Exam Respiratory Exam: Clear to Auscultation Bilateral, NORMAL BREATHING PATTERN. absent: Rales, Rhonchi, Wheezes, Respiratory Distress - Cardiovascular Exam Cardiovascular Exam: RRR, +S1, +S2. absent: Systolic Murmur - GI/Abdominal Exam GI & Abdominal Exam: Normal Bowel Sounds, Soft. absent: Distended, Firm, Mass, Organomegaly, Tenderness - Rectal Exam Rectal Exam: Deferred - Extremities Exam Extremities exam: Positive for: full ROM, normal inspection. Negative for: calf tenderness, pedal edema - Back Exam Back exam: NORMAL INSPECTION - Neurological Exam Neurological exam: Alert, CN II-XII Intact, Oriented x3 - Psychiatric Exam Psychiatric exam: Normal Affect, Normal Mood - Skin Skin Exam: Dry, Intact, Normal Color, Warm Results - Vital Signs Recent Vital Signs: Last Vital Signs Temp 99.4 F 03/31/18 18:16 Pulse 79 03/31/18 18:16 Resp 18 03/31/18 18:16 BP 161/82 H 03/31/18 18:16 Pulse Ox 96 03/31/18 18:16 - Labs Result Diagrams: 03/31/18 16:40 03/31/18 16:40 Assessment & Plan - Assessment and Plan (Free Text) Assessment: Patient is a 57 yo male with PMH recurrent peritonsillar abscesses, HTN, hypercholesterolemia, seasonal allergies, asthma presenting to ED with chief complaint of sore throat. Plan: 1. Sore throat with erythema and swelling - Likely due to peritonsillar abscess - Unasyn 1.5 gm IV Q6H - Clear liquid diet - ENT consult - WBC elevated - Temperature 100.1, continue to monitor 2. History of hypertension - Current BP 167/91 - Continue home medications metoprolol, lisinopril, norvasc, hctz 3. Obesity - Counseling on obesity and diet provided DVT/GI prophylaxis - DVT: bilateral sequential compression devices - GI: protonix Case seen and reviewed with Dr. Hector Savage PGY 1 <Camille Young - Last Filed: 04/01/18 07:29> Results - Vital Signs Recent Vital Signs: Last Vital Signs Temp 99.4 F 03/31/18 19:01 Pulse 63 04/01/18 01:00 Resp 18 04/01/18 01:00 BP 168/95 H 04/01/18 02:06 Pulse Ox 99 03/31/18 20:43 - Labs Result Diagrams: 04/01/18 06:30 03/31/18 16:40 Labs: Laboratory Results - last 24 hr 04/01/18 06:30 WBC 13.8 H RBC 5.22 Hgb 15.5 Hct 45.7 MCV 87.5 MCH 29.7 MCHC 33.9 RDW 13.7 Plt Count 190 MPV 10.2 Gran % 85.5 H Lymph % (Auto) 10.1 L [place] % (Auto) 4.3 Eos % (Auto) 0.0 L Baso % (Auto) 0.1 Gran # 11.81 H Lymph # (Auto) 1.4 [place] # (Auto) 0.6 Eos # (Auto) 0.0 Baso # (Auto) 0.01 Attending/Attestation - Attestation I have personally seen and examined this patient.: Yes I have fully participated in the care of the patient.: Yes I have reviewed all pertinent clinical information: Yes Notes (Text): 03/31/18 57 year old female with past medical history of recurrent peritonsillar abscesses, hypertension, and asthma who presents with sore throat, found to have erythema and swelling probable peritonsillar abscess. ENT notified in ER. He is on iv antibiotics. Clear liquid diet as tolerated. Resume home medications for hypertension. Camille Young MD Hospitalist.
[2018-03-31] MEDS ORDERED: Pneumococcal 23-Valent Vaccine IM ONE (19:18)
[2018-03-31] MEDS ORDERED: Ergocalciferol 50,000 Intl Units Cap PO SCH (19:30)
[2018-03-31] MEDS: AMPicillin/Sulbactam 1.5gm 1 GM/100 ML BAG IVPB SCH (20:26)
[2018-04-01] MEDS: AMPicillin/Sulbactam 1.5gm 1 GM/100 ML BAG IVPB SCH ×4 (00:46→18:33)
[2018-04-01] MEDS ORDERED: Pantoprazole 40 mg EC Tab PO SCH (06:00)
[2018-04-01 06:54] LABS: BASO # 0.01 K/mm3 (0.0-2.0); BASO % 0.1 % (0.0-3.0); GRAN # 11.81 (1.4-6.5); GRAN % 85.5 % (50.0-68.0); HEMOGLOBIN 15.5 g/dL (14.0-18.0); LYMPH # 1.4 (1.2-3.4); LYMPH % 10.1 % (22.0-35.0); MEAN CELL VOLUME 87.5 fl (80.0-105.0); MEAN CORPUSCULAR HEMOGLOBIN 29.7 pg (25.0-35.0); MEAN CORPUSCULAR HGB CONC 33.9 g/dl (31.0-37.0); MEAN PLATELET VOLUME 10.2 fl (7.0-11.0); MONO # 0.6 (0.1-0.6); MONO % 4.3 % (1.0-6.0); RBC 5.22 10^6/uL (3.5-6.1); RED CELL DISTRIBUTION WIDTH 13.7 % (11.5-14.5); WHITE BLOOD COUNT 13.8 10^3/ul (4.5-11.0)
[2018-04-01 07:26] LABS: BLOOD UREA NITROGEN 16 mg/dL (7-21); CALCIUM 9.1 mg/dL (8.4-10.5); GFR AFRICAN-AMERICAN > 60; GFR NON-AFRICAN AMERICAN > 60
[2018-04-01] MEDS ORDERED: Ergocalciferol 50,000 Intl Units Cap PO SCH (07:30)
--- NOTE | 2018-04-01 13:18 | CP.PCM.CON ---
History of Present Illness - History of Present Illness History of Present Illness: 57y/o male with hx of hypertension and hypercholesterolemia and previous peritonsil abscess requiring drainage in past. Pt presents today with recent onset of throat pain with sinus complaints. He has dysphagia and odynophagia that has improved since hospitalization. ER felt patient had a peritonsil abscess requiring drainage. Pt feels his pain and difficulty swallowing has improved since hospitalization. Review of Systems - Constitutional Constitutional: As Per HPI - EENT Eyes: As Per HPI Ears: As Per HPI Nose/Mouth/Throat: As Per HPI, Nasal Obstruction, Sinus Pain, Sinus Pressure, Dysphagia, Odynophagia - Cardiovascular Cardiovascular: As Per HPI - Respiratory Respiratory: As Per HPI - Musculoskeletal Musculoskeletal: As Per HPI - Integumentary Integumentary: As Per HPI - Neurological Neurological: As Per HPI - Psychiatric Psychiatric: As Per HPI. absent: Confusion, Depression, Hallucinations, Mood Swings - Endocrine Endocrine: As Per HPI - Hematologic/Lymphatic Hematologic: As Per HPI Past Patient History - Infectious Disease Hx of Infectious Diseases: None - Tetanus Immunizations Tetanus Immunization: Unknown - Past Medical History & Family History Past Medical History?: Yes Past Family History: Reviewed and not pertinent - Past Social History Smoking Status: Former Smoker Alcohol: Social Drugs: Denies - CARDIAC Hx Hypercholesterolemia: Yes Hx Hypertension: Yes Hx Peripheral Edema: Yes (ble +1) - PULMONARY Hx Respiratory Disorders: Yes Hx Asthma: Yes Other/Comment: SMOKED 1/2 TO PPD QUIT - NEUROLOGICAL Hx Neurological Disorder: Yes Hx Dizziness: Yes - HEENT Other/Comment: h/o throat abscess - RENAL Hx Chronic Kidney Disease: No - ENDOCRINE/METABOLIC Hx Endocrine Disorders: No - HEMATOLOGICAL/ONCOLOGICAL Hx Blood Disorders: No - INTEGUMENTARY Hx Dermatological Problems: No - MUSCULOSKELETAL/RHEUMATOLOGICAL Hx Back Pain: Yes Hx Falls: No - GASTROINTESTINAL Hx Gastroesophageal Reflux: Yes - GENITOURINARY/GYNECOLOGICAL Hx Genitourinary Disorders: No - PSYCHIATRIC Hx Depression: No Hx Emotional Abuse: No Hx Physical Abuse: No Hx Substance Use: No - SURGICAL HISTORY Hx Appendectomy: Yes Other/Comment: CARD CATH. 2001 - ANESTHESIA Hx Anesthesia: Yes Hx Anesthesia Reactions: No Hx Malignant Hyperthermia: No Meds Allergies/Adverse Reactions: Allergies Allergy/AdvReac Type Severity Reaction Status Date / Time No Known Allergies Allergy Verified 03/31/18 17:45 - Medications Medications: Current Medications Amlodipine Besylate (Norvasc) 5 mg PO DAILY [facility] Last Admin: 04/01/18 10:03 Dose: 5 mg Ergocalciferol (Drisdol 50,000 Intl Units Cap) 1 cap PO Q7D [facility] Last Admin: 03/31/18 20:28 Dose: 1 cap Hydrochlorothiazide (Microzide) 12.5 mg PO DAILY [facility] Last Admin: 04/01/18 10:03 Dose: 12.5 mg Ampicillin Sodium/Sulbactam Sodium (Unasyn) 1 gm in 100 mls @ 100 mls/hr IVPB Q6H [facility] PRN Reason: Protocol Last Admin: 04/01/18 06:34 Dose: 100 mls/hr Metoprolol Tartrate (Lopressor) 12.5 mg PO DAILY [facility] Last Admin: 04/01/18 10:03 Dose: 12.5 mg Montelukast Sodium (Singulair) 10 mg PO DAILY [facility] Last Admin: 04/01/18 10:03 Dose: 10 mg Physical Exam - Constitutional Appears: Well, Non-toxic - Head Exam Head Exam: ATRAUMATIC, NORMAL INSPECTION, NORMOCEPHALIC - Eye Exam Eye Exam: EOMI, Normal appearance Pupil Exam: NORMAL ACCOMODATION - ENT Exam ENT Exam: Mucous Membranes Moist, Normal External Ear Exam Additional comments: pt has mild erythema of tonsils more on left with minimal fullness, no uvula deviation, no exudate seen. Clear peritonsil abscess not visualized - Expanded ENT Exam Expanded Mouth exam: normal external inspection Throat exam: Post Pharyngeal Edema, Post Pharyngeal Erythema, Tonsillar Erythema - Neck Exam Neck exam: Positive for: Full Rom, Normal Inspection. Negative for: Lymphadenopathy - Respiratory Exam Respiratory Exam: NORMAL BREATHING PATTERN - Extremities Exam Extremities exam: Positive for: normal inspection - Neurological Exam Neurological exam: Alert, Oriented x3 - Psychiatric Exam Psychiatric exam: Normal Affect, Normal Mood - Skin Skin Exam: Normal Color, Warm Results - Vital Signs Recent Vital Signs: Last Vital Signs Temp 96.2 F L 04/01/18 06:00 Pulse 62 04/01/18 06:00 Resp 20 04/01/18 06:00 BP 136/85 04/01/18 06:00 Pulse Ox 95 04/01/18 06:00 - Labs Result Diagrams: 04/01/18 06:30 04/01/18 06:30 Labs: Laboratory Results - last 24 hr 04/01/18 04/01/18 06:30 06:30 WBC 13.8 H RBC 5.22 Hgb 15.5 Hct 45.7 MCV 87.5 MCH 29.7 MCHC 33.9 RDW 13.7 Plt Count 190 MPV 10.2 Gran % 85.5 H Lymph % (Auto) 10.1 L [place] % (Auto) 4.3 Eos % (Auto) 0.0 L Baso % (Auto) 0.1 Gran # 11.81 H Lymph # (Auto) 1.4 [place] # (Auto) 0.6 Eos # (Auto) 0.0 Baso # (Auto) 0.01 Sodium 142 Potassium 4.1 Chloride 104 Carbon Dioxide 24 Anion Gap 19 BUN 16 Creatinine 0.5 L Est GFR ( Amer) > 60 Est GFR (Non-Af Amer) > 60 Random Glucose 170 H Calcium 9.1 Assessment & Plan (1) Peritonsillar abscess Status: Acute (2) Peritonsillar cellulitis Status: Acute (3) Pharyngitis Status: Acute (4) Sore throat Status: Acute (5) Acute non-recurrent maxillary sinusitis Status: Acute (6) Acute recurrent maxillary sinusitis Status: Acute - Assessment and Plan (Free Text) Plan: continue IV abx and steroids, pt stable to be discharged home with out patient PO ABX and steroids (medrol dose pack) after given 1-2 more doses of abx and steroids via IV. Pt given follow up information for an quarter backer that takes his insurance. [facility] or Dr. Timmons in [place]. Return to hospital if symptoms worsen. - Date & Time Date: 04/01/18 Time: 13:17
[2018-04-01 17:21] VITALS: BP 142/63; PULSE 70; RESP 19; TEMP 97.9; O2SAT 100
--- NOTE | 2018-04-01 17:22 | CP.PCM.DIS ---
<Rohan Franklin - Last Filed: 04/01/18 17:10> Provider - Provider Date of Admission: 03/31/18 17:28 Attending physician: Camille Young MD Consults: ENT - Dr. Hernandez Time Spent in preparation of Discharge (in minutes): 45 Hospital Course - Lab Results Lab Results: Most Recent Lab Values WBC 13.8 10^3/ul (4.5-11.0) H 04/01/18 06:30 RBC 5.22 10^6/uL (3.5-6.1) 04/01/18 06:30 Hgb 15.5 g/dL (14.0-18.0) 04/01/18 06:30 Hct 45.7 % (42.0-52.0) 04/01/18 06:30 MCV 87.5 fl (80.0-105.0) 04/01/18 06:30 MCH 29.7 pg (25.0-35.0) 04/01/18 06:30 MCHC 33.9 g/dl (31.0-37.0) 04/01/18 06:30 RDW 13.7 % (11.5-14.5) 04/01/18 06:30 Plt Count 190 10^3/uL (120.0-450.0) 04/01/18 06:30 MPV 10.2 fl (7.0-11.0) 04/01/18 06:30 Gran % 85.5 % (50.0-68.0) H 04/01/18 06:30 Lymph % (Auto) 10.1 % (22.0-35.0) L 04/01/18 06:30 [place] % (Auto) 4.3 % (1.0-6.0) 04/01/18 06:30 Eos % (Auto) 0.0 % (1.5-5.0) L 04/01/18 06:30 Baso % (Auto) 0.1 % (0.0-3.0) 04/01/18 06:30 Gran # 11.81 (1.4-6.5) H 04/01/18 06:30 Lymph # (Auto) 1.4 (1.2-3.4) 04/01/18 06:30 [place] # (Auto) 0.6 (0.1-0.6) 04/01/18 06:30 Eos # (Auto) 0.0 (0.0-0.7) 04/01/18 06:30 Baso # (Auto) 0.01 K/mm3 (0.0-2.0) 04/01/18 06:30 pO2 49 mm/Hg (30-55) 03/31/18 16:40 VBG pH 7.40 (7.32-7.43) 03/31/18 16:40 VBG pCO2 49.0 (40-60) 03/31/18 16:40 VBG HCO3 30.4 mmol/l (21-28) H 03/31/18 16:40 VBG Total CO2 31.9 mmol.L (22-28) H 03/31/18 16:40 VBG O2 Sat (Calc) 87.1 % (40-65) H 03/31/18 16:40 VBG Base Excess 4.5 mmol/L (0.0-2.0) H 03/31/18 16:40 VBG Potassium 4.1 mmol/L (3.6-5.2) 03/31/18 16:40 Sodium 138.0 mmol/L (132-148) 03/31/18 16:40 Chloride 103.0 mmol/L (98-107) 03/31/18 16:40 Glucose 117 mg/dl (75-110) H 03/31/18 16:40 Lactate 1.2 mmol/L (0.7-2.1) 03/31/18 16:40 FiO2 21.0 % 03/31/18 16:40 Sodium 142 mmol/L (132-148) 04/01/18 06:30 Potassium 4.1 mmol/L (3.6-5.0) 04/01/18 06:30 Chloride 104 mmol/L (98-107) 04/01/18 06:30 Carbon Dioxide 24 mmol/L (21-33) 04/01/18 06:30 Anion Gap 19 (10-20) 04/01/18 06:30 BUN 16 mg/dL (7-21) 04/01/18 06:30 Creatinine 0.5 mg/dl (0.8-1.5) L 04/01/18 06:30 Est GFR ( Amer) > 60 04/01/18 06:30 Est GFR (Non-Af Amer) > 60 04/01/18 06:30 Random Glucose 170 mg/dL (70-110) H 04/01/18 06:30 Calcium 9.1 mg/dL (8.4-10.5) 04/01/18 06:30 Magnesium 2.0 mg/dL (1.7-2.2) 03/31/18 16:40 Total Bilirubin 1.4 mg/dL (0.2-1.3) H 03/31/18 16:40 AST 39 U/L (17-59) 03/31/18 16:40 ALT 56 U/L (7-56) 03/31/18 16:40 Alkaline Phosphatase 88 U/L (38-126) 03/31/18 16:40 Total Protein 8.0 g/dL (5.8-8.3) 03/31/18 16:40 Albumin 4.3 g/dL (3.0-4.8) 03/31/18 16:40 Globulin 3.6 gm/dL 03/31/18 16:40 Albumin/Globulin Ratio 1.2 (1.1-1.8) 03/31/18 16:40 Venous Blood Potassium 4.1 mmol/L (3.6-5.2) 03/31/18 16:40 - Hospital Course Hospital Course: Rohan Franklin DO PGY-1, [employer] Medicine Discharge Summary 57 yo male with PMH recurrent peritonsillar abscesses, HTN, hypercholesterolemia, seasonal allergies, asthma presented on 03/31/18 with chief complaint of sore throat. Rated the severity of his symptoms +2/10, began about 3 days ago. Pt mentioned that due to his history of peritonsillar abscesses, his symptom prompted his arrival at the ED. Patient stated that previously his abscess has been drained. Was comfortable eating and drinking, and had sandwich earlier in the day without any trouble. Admitted to fever and chills. Denied headache, changes in hearing, dysphagia, drooling, changes in voice, chest pain , shortness of breath, nausea, vomiting, abdominal pain, changes in bowel habits , urinary frequency. Pt had temp in ED of 100.1, WBC were elevated. Pt was started and treated with unasyn. Pt's sore throat with erythema and swelling was likely due to peritonsillar abscess. ENT (Dr. Hernandez) was consulted for likely peritonsillar abscess, and stated that pt was stable to be discharged to home on PO antibiotic treatment and Medrol dose pack. On day of discharge, pt was tolerating regular diet, ambulating, voiding well, and stated that his sore throat was improving. He was discharged to home in stable condition on 04/01/18 with instructions to follow up with PCP Dr. Siu within 1 week of discharge, and with ENT within 1 week of discharge. Pt was discharged on Augmentin PO to finish 10 day course of anbx and Medrol dose pack. Pt was instructed to c/w HTN medication regimen and other home medications. Discharge Exam - Head Exam Head Exam: ATRAUMATIC, NORMAL INSPECTION, NORMOCEPHALIC - Eye Exam Eye Exam: Normal appearance - ENT Exam Additional comments: Decreased tonsillar erythema - Neck Exam Neck exam: Full Rom, Normal Inspection - Respiratory Exam Respiratory Exam: Clear to PA & Lateral, NORMAL BREATHING PATTERN - Cardiovascular Exam Cardiovascular Exam: REGULAR RHYTHM, +S1, +S2 - GI/Abdominal Exam GI & Abdominal Exam: Normal Bowel Sounds, Soft, Unremarkable - Extremities Exam Extremities exam: full ROM, normal capillary refill, pedal pulses present - Neurological Exam Neurological exam: Alert, CN II-XII Intact, Normal Gait, Oriented x3 - Psychiatric Exam Psychiatric exam: Normal Affect, Normal Mood - Skin Skin Exam: Dry, Intact, Normal Color, Warm Discharge Plan - Discharge Medications Prescriptions: Amoxicillin/Clavulanate [Augmentin 500 MG-125 MG] 1 tab PO Q6H #36 tab Methylprednisolone [Medrol Dose Pack (21 tabs)] See Taper PO DAILY #21 mg - Follow Up Plan Condition: GOOD Disposition: HOME/ ROUTINE Instructions: Sinusitis, Adult (DC), Peritonsillar Abscess, Adult (DC), Abscess (GEN) Additional Instructions: Please return to the emergency department if symptoms recur or worsen. Please follow up with Dr. Manjit Siu (PCP) within 1 week of discharge. Please follow up with ENT within 1 week of discharge. Take antibiotics and steroids as prescribed. Avoid alcohol use while taking antibiotics. Continue home medications. <Camille Young - Last Filed: 04/01/18 17:33> Provider - Provider Date of Admission: 03/31/18 17:28 Attending physician: Camille Young MD [facility] Course - Lab Results Lab Results: Most Recent Lab Values WBC 13.8 10^3/ul (4.5-11.0) H 04/01/18 06:30 RBC 5.22 10^6/uL (3.5-6.1) 04/01/18 06:30 Hgb 15.5 g/dL (14.0-18.0) 04/01/18 06:30 Hct 45.7 % (42.0-52.0) 04/01/18 06:30 MCV 87.5 fl (80.0-105.0) 04/01/18 06:30 MCH 29.7 pg (25.0-35.0) 04/01/18 06:30 MCHC 33.9 g/dl (31.0-37.0) 04/01/18 06:30 RDW 13.7 % (11.5-14.5) 04/01/18 06:30 Plt Count 190 10^3/uL (120.0-450.0) 04/01/18 06:30 MPV 10.2 fl (7.0-11.0) 04/01/18 06:30 Gran % 85.5 % (50.0-68.0) H 04/01/18 06:30 Lymph % (Auto) 10.1 % (22.0-35.0) L 04/01/18 06:30 [place] % (Auto) 4.3 % (1.0-6.0) 04/01/18 06:30 Eos % (Auto) 0.0 % (1.5-5.0) L 04/01/18 06:30 Baso % (Auto) 0.1 % (0.0-3.0) 04/01/18 06:30 Gran # 11.81 (1.4-6.5) H 04/01/18 06:30 Lymph # (Auto) 1.4 (1.2-3.4) 04/01/18 06:30 [place] # (Auto) 0.6 (0.1-0.6) 04/01/18 06:30 Eos # (Auto) 0.0 (0.0-0.7) 04/01/18 06:30 Baso # (Auto) 0.01 K/mm3 (0.0-2.0) 04/01/18 06:30 pO2 49 mm/Hg (30-55) 03/31/18 16:40 VBG pH 7.40 (7.32-7.43) 03/31/18 16:40 VBG pCO2 49.0 (40-60) 03/31/18 16:40 VBG HCO3 30.4 mmol/l (21-28) H 03/31/18 16:40 VBG Total CO2 31.9 mmol.L (22-28) H 03/31/18 16:40 VBG O2 Sat (Calc) 87.1 % (40-65) H 03/31/18 16:40 VBG Base Excess 4.5 mmol/L (0.0-2.0) H 03/31/18 16:40 VBG Potassium 4.1 mmol/L (3.6-5.2) 03/31/18 16:40 Sodium 138.0 mmol/L (132-148) 03/31/18 16:40 Chloride 103.0 mmol/L (98-107) 03/31/18 16:40 Glucose 117 mg/dl (75-110) H 03/31/18 16:40 Lactate 1.2 mmol/L (0.7-2.1) 03/31/18 16:40 FiO2 21.0 % 03/31/18 16:40 Sodium 142 mmol/L (132-148) 04/01/18 06:30 Potassium 4.1 mmol/L (3.6-5.0) 04/01/18 06:30 Chloride 104 mmol/L (98-107) 04/01/18 06:30 Carbon Dioxide 24 mmol/L (21-33) 04/01/18 06:30 Anion Gap 19 (10-20) 04/01/18 06:30 BUN 16 mg/dL (7-21) 04/01/18 06:30 Creatinine 0.5 mg/dl (0.8-1.5) L 04/01/18 06:30 Est GFR ( Amer) > 60 04/01/18 06:30 Est GFR (Non-Af Amer) > 60 04/01/18 06:30 Random Glucose 170 mg/dL (70-110) H 04/01/18 06:30 Calcium 9.1 mg/dL (8.4-10.5) 04/01/18 06:30 Magnesium 2.0 mg/dL (1.7-2.2) 03/31/18 16:40 Total Bilirubin 1.4 mg/dL (0.2-1.3) H 03/31/18 16:40 AST 39 U/L (17-59) 03/31/18 16:40 ALT 56 U/L (7-56) 03/31/18 16:40 Alkaline Phosphatase 88 U/L (38-126) 03/31/18 16:40 Total Protein 8.0 g/dL (5.8-8.3) 03/31/18 16:40 Albumin 4.3 g/dL (3.0-4.8) 03/31/18 16:40 Globulin 3.6 gm/dL 03/31/18 16:40 Albumin/Globulin Ratio 1.2 (1.1-1.8) 03/31/18 16:40 Venous Blood Potassium 4.1 mmol/L (3.6-5.2) 03/31/18 16:40 Attending/Attestation - Attestation I have personally seen and examined this patient.: Yes I have fully participated in the care of the patient.: Yes I have reviewed all pertinent clinical information, including history, physical exam and plan: Yes Notes (Text): 04/01/18 17:31 57 year old female with past medical history of recurrent peritonsillar abscesses, hypertension, and asthma who presents with sore throat, found to have erythema and swelling peritonsillar cellulitis and possible abscess. He was given decadron and started on iv antibiotics. His symptoms improved. He was seen by ENT who recommended outpatient follow up. He is discharged home on po antibiotics and medrol dosepack. Follow up with pmd, Dr. Siu. Follow up with ENT. Camille Young MD Hospitalist.
== END 2018-04-01 20:05 | disposition home or self-care (01) ==
LOC: ED 16:05 → ERH 17:28 → 3RNO 18:45
PROVIDERS: ADMIT Internal Medicine; ATTEND Internal Medicine
DX: J36 Peritonsillar abscess (principal); J45.909 Unspecified asthma, uncomplicated; I10 Essential (primary) hypertension; E78.00 Pure hypercholesterolemia, unspecified; J30.2 Other seasonal allergic rhinitis; K21.9 Gastro-esophageal reflux disease without esophagitis; Z87.891 Personal history of nicotine dependence
CPT/HCPCS: 36415; 80048; 80053; 82803; 83735; 85025; 87040; 96365; 96366; 96367; 96375; 99285; G0378; J0295; J0696; J1100; J7040

== ENCOUNTER 2018-07-15 09:25 | Emergency (ER) | payer MEDICAID ==
[2018-07-15 09:25] VITALS: BMI 41.3
[2018-07-15 09:34] VITALS: RESP 18; TEMP 97.6
[2018-07-15] MEDS ORDERED: Amoxicillin-Clav 875-125 mg Tab PO STA (09:39)
--- NOTE | 2018-07-15 09:43 | ED PDOC ---
Arrival/HPI - General Historian: Patient - History of Present Illness Narrative History of Present Illness (Text): 07/15/18 09:40 58yo male with pmhx of hyperlipdemia/hypertension/peritonsillar abscess who present with complaint of sore throat since last night. Reports Odynophagia. States this is not similar to his pervious peritonsillar abscess in April 2017. States he didn't want to wait to see his PMD tomorrow, to avoid it becoming an abscess. He denies fever, muffling sound, chest pain, SOB, dysphagia, drooling, nausea, abdominal pain, any other complaint. <Tatiana Quesada A - Last Filed: 07/15/18 16:03> <Brandon Rubin - Last Filed: 07/17/18 21:00> - General Chief Complaint: ENT Problem Time Seen by Provider: 07/15/18 09:34 Past Medical History - Provider Review Nursing Documentation Reviewed: Yes - Infectious Disease Hx of Infectious Diseases: None - Tetanus Immunization Tetanus Immunization: Unknown - Cardiac Hx Hypertension: Yes Hx Peripheral Edema: Yes (ble +1) - Pulmonary Hx Respiratory Disorders: Yes Hx Asthma: Yes Other/Comment: SMOKED 1/2 TO PPD QUIT - Neurological Hx Neurological Disorder: Yes Hx Dizziness: Yes - HEENT Other/Comment: h/o throat abscess - Renal Hx Renal Disorder: No - Endocrine/Metabolic Hx Endocrine Disorders: No - Hematological/Oncological Hx Blood Disorders: No - Integumentary Hx Dermatological Disorder: No - Musculoskeletal/Rheumatological Hx Back Pain: Yes Hx Falls: No - Gastrointestinal Hx Gastroesophageal Reflux: Yes - Genitourinary/Gynecological Hx Genitourinary Disorders: No - Psychiatric Hx Depression: No Hx Emotional Abuse: No Hx Physical Abuse: No Hx Substance Use: No - Surgical History Hx Appendectomy: Yes Other/Comment: CARD CATH. 2001 - Anesthesia Hx Anesthesia: Yes Hx Anesthesia Reactions: No Hx Malignant Hyperthermia: No - Suicidal Assessment Feels Threatened In Home Enviroment: No <SangitaHappiness A - Last Filed: 07/15/18 16:03> Family/Social History - Physician Review Nursing Documentation Reviewed: Yes Family/Social History: Unknown Family HX Smoking Status: Current Some Days Smoker Hx Alcohol Use: Yes Frequency of alcohol use: Socially Hx Substance Use: No Hx Substance Use Treatment: No <Tatiana Quesada A - Last Filed: 07/15/18 16:03> Allergies/Home Meds <Tatiana Quesada A - Last Filed: 07/15/18 16:03> <Brandon Rubin - Last Filed: 07/17/18 21:00> Allergies/Adverse Reactions: Allergies No Known Allergies Allergy (Verified 07/15/18 09:34) Home Medications: Home Meds Medication Instructions Recorded Confirmed RX: Aspirin [Adult Aspirin] 81 mg PO DAILY 03/31/18 07/15/18 RX: Atorvastatin [Lipitor] 40 mg PO DAILY 03/31/18 07/15/18 RX: Metoprolol Tartrate [Lopressor] 12.5 mg PO DAILY 03/31/18 07/15/18 RX: amLODIPine [Norvasc] 5 mg PO DAILY 03/31/18 07/15/18 Review of Systems - Physician Review All systems were reviewed & negative as marked: Yes - Review of Systems Constitutional: Normal Eyes: Normal ENT: Sore Throat Respiratory: Normal Cardiovascular: Normal Gastrointestinal: Normal Genitourinary Male: Normal Musculoskeletal: Normal Skin: Normal Neurological: Normal Endocrine: Normal Hemo/Lymphatic: Normal Psychiatric: Normal <Tatiana Quesada A - Last Filed: 07/15/18 16:03> Physical Exam Vital Signs Reviewed: Yes Vital Signs Temp Pulse Resp BP Pulse Ox 07/15/18 09:32 97.6 F 85 18 166/85 H 96 Temperature: Afebrile Blood Pressure: Normal Pulse: Regular Respiratory Rate: Normal Appearance: Positive for: Well-Appearing, Non-Toxic, Comfortable Pain Distress: None Mental Status: Positive for: Alert and Oriented X 3 - Systems Exam Head: Present: Atraumatic, Normocephalic Pupils: Present: PERRL Extroacular Muscles: Present: EOMI Conjunctiva: Present: Normal Mouth: Present: Moist Mucous Membranes Pharnyx: Present: ERYTHEMA. No: EXUDATE, TONSILS ENLARGED, Peritonsilar Swelling, Uvular Deviation, Muffled/Hoarse Voice, Strider Neck: Present: Normal Range of Motion Respiratory/Chest: Present: Clear to Auscultation, Good Air Exchange. No: Respiratory Distress, Accessory Muscle Use Cardiovascular: Present: Regular Rate and Rhythm, Normal S1, S2. No: Murmurs Abdomen: No: Tenderness, Distention, Peritoneal Signs Back: Present: Normal Inspection Upper Extremity: Present: Normal Inspection. No: Cyanosis, Edema Lower Extremity: Present: Normal Inspection. No: Edema Neurological: Present: GCS=15, CN II-XII Intact, Speech Normal Skin: Present: Warm, Dry, Normal Color. No: Rashes Psychiatric: Present: Alert, Oriented x 3, Normal Insight, Normal Concentration <Tatiana Quesada A - Last Filed: 07/15/18 16:03> Vital Signs Temp Pulse Resp BP Pulse Ox 07/15/18 09:51 71 18 150/78 97 07/15/18 09:32 97.6 F 85 18 166/85 H 96 <Brandon Rubin - Last Filed: 07/17/18 21:00> Medical Decision Making ED Course and Treatment: 07/15/18 16:03 58yo male in ED for sore throat sine last night. He gabbi afebrile in no distress. controlling his secretions in ED. He had no peritonsillar swelling or exudate. No uvular shift. Pharyngeal erythema was noted. Decadron Augmentin He was stable in ED for DC . Was DC home with Augmentin. He plan to see his PMD tomorrow and was advised to keep the appointment. TRT ED for any new or worsening symptoms - Medication Orders Current Medication Orders: Amoxicillin/Clavulanate Potassium (Augmentin 875 Mg-125 Mg Tab) 1 tab PO STAT STA; Protocol Stop: 07/15/18 09:40 Dexamethasone (Decadron Inj) 10 mg IM STAT STA Stop: 07/15/18 09:40 <Tatiana Quesada A - Last Filed: 07/15/18 16:03> - Medication Orders Current Medication Orders: Discontinued Medications Amoxicillin/Clavulanate Potassium (Augmentin 875 Mg-125 Mg Tab) 1 tab PO STAT STA; Protocol Stop: 07/15/18 09:40 Last Admin: 07/15/18 09:45 Dose: 1 tab Dexamethasone (Decadron Inj) 10 mg IM STAT STA Stop: 07/15/18 09:40 Last Admin: 07/15/18 09:45 Dose: 10 mg IM Administration Charges Document 07/15/18 09:45 GMD (Rec: 07/15/18 09:45 GMD [id number]) Injection Site MAR Injection Site Left Deltoid Charges for Administration # of IM Administrations 1 <Brandon Rubin - Last Filed: 07/17/18 21:00> - PA / SENIOR CLINICAL STUDY MANAGER / Resident Statement /DO has reviewed & agrees with the documentation as recorded. <Brandon Rubin - Last Filed: 07/17/18 21:00> Disposition/Present on Arrival - Present on Arrival Any Indicators Present on Arrival: No History of DVT/PE: No History of Uncontrolled Diabetes: No Urinary Catheter: No History of Decub. Ulcer: No History Surgical Site Infection Following: None - Disposition Have Diagnosis and Disposition been Completed?: Yes Disposition Time: 09:45 Patient Plan: Discharge <Tatiana Quesada - Last Filed: 07/15/18 16:03> <Brandon Rubin - Last Filed: 07/17/18 21:00> - Disposition Diagnosis: Acute pharyngitis Disposition: HOME/ ROUTINE Condition: STABLE Discharge Instructions (ExitCare): Strep Throat (DC) Additional Instructions: Follow up with your Doctor Return to ED for any new or worsen symptoms Prescriptions: Amoxicillin/Clavulanate [Augmentin 875 MG-125 MG] 1 tab PO BID #14 tab Referrals: Trice Wooten MD [Medical Doctor] - Follow up with primary Forms: [employer] (Arabic)
[2018-07-15 09:53] VITALS: BP 150/78; PULSE 71; O2SAT 97
== END 2018-07-15 10:01 | disposition home or self-care (01) ==
LOC: ED 09:25
DX: J02.9 Acute pharyngitis, unspecified (principal); I10 Essential (primary) hypertension; E78.5 Hyperlipidemia, unspecified
CPT/HCPCS: 96372; 99283; J1100

== ENCOUNTER 2018-12-09 10:22 | Observation (INO) | payer MEDICAID ==
[2018-12-09 10:33] VITALS: BMI 40.6
[2018-12-09] MEDS ORDERED: Sodium Chloride 0.9% 1,000 ML IV STA (10:38)
[2018-12-09] MEDS ORDERED: cefTRIAXone 1 gm 1 GM/100 ML BAG IVPB STA (10:40)
--- NOTE | 2018-12-09 10:44 | ED PDOC ---
Arrival/HPI - General Time Seen by Provider: 12/09/18 10:29 Historian: Patient - History of Present Illness Narrative History of Present Illness (Text): 12/09/18 10:42 A 58 year old male, whose past medical history includes peritonsilar abscesses, presents to the emergency department complaining of left-side severe sore throat upon waking up this morning. Patient reports he did not have any issues the previous day. Patient denies any fever, dysphasia, or any other complaints at this time. Patient admits to being an occasional smoker/drinker. PMD: Dr. Siu Time/Duration: Other (this morning) Symptom Onset: Sudden Symptom Course: Unchanged Associated Symptoms (Text): 12/09/18 11:05 Severe left-sided throat pain beginning this morning. No fever. No dyspnea or dysphasia. History of peritonsillar abscess. Past Medical History - Provider Review Nursing Documentation Reviewed: Yes - Infectious Disease Hx of Infectious Diseases: None - Tetanus Immunization Tetanus Immunization: Unknown - Cardiac Hx Hypertension: Yes Hx Peripheral Edema: Yes (ble +1) - Pulmonary Hx Respiratory Disorders: Yes Hx Asthma: Yes Other/Comment: SMOKED 1/2 TO PPD QUIT - Neurological Hx Neurological Disorder: Yes Hx Dizziness: Yes - HEENT Other/Comment: h/o throat abscess - Renal Hx Renal Disorder: No - Endocrine/Metabolic Hx Endocrine Disorders: No - Hematological/Oncological Hx Blood Disorders: No - Integumentary Hx Dermatological Disorder: No - Musculoskeletal/Rheumatological Hx Back Pain: Yes Hx Falls: No - Gastrointestinal Hx Gastroesophageal Reflux: Yes - Genitourinary/Gynecological Hx Genitourinary Disorders: No - Psychiatric Hx Depression: No Hx Emotional Abuse: No Hx Physical Abuse: No Hx Substance Use: No - Surgical History Hx Appendectomy: Yes Other/Comment: CARD CATH. 2001 - Anesthesia Hx Anesthesia: Yes Hx Anesthesia Reactions: No Hx Malignant Hyperthermia: No - Suicidal Assessment Feels Threatened In Home Enviroment: No Family/Social History - Physician Review Nursing Documentation Reviewed: Yes Family/Social History: No Known Family HX Smoking Status: Current Some Days Smoker Hx Alcohol Use: Yes Frequency of alcohol use: Socially Hx Substance Use: No Hx Substance Use Treatment: No Allergies/Home Meds Allergies/Adverse Reactions: Allergies No Known Allergies Allergy (Verified 07/15/18 09:34) Home Medications: Home Meds Medication Instructions Recorded Confirmed Aspirin [Adult Aspirin] 81 mg PO DAILY 03/31/18 07/15/18 Atorvastatin [Lipitor] 40 mg PO DAILY 03/31/18 07/15/18 Metoprolol Tartrate [Lopressor] 12.5 mg PO DAILY 03/31/18 07/15/18 amLODIPine [Norvasc] 5 mg PO DAILY 03/31/18 07/15/18 Review of Systems - Physician Review All systems were reviewed & negative as marked: Yes - Review of Systems Constitutional: absent: Fatigue, Fevers ENT: Sore Throat (left-side severe sore throat). absent: Rhinorrhea, Sinus Congestion Respiratory: absent: SOB, Cough Cardiovascular: absent: Chest Pain, Palpitations Neurological: absent: Headache, Dizziness, Speech Changes (no dysphasia) Physical Exam Temperature: Afebrile Blood Pressure: Hypertensive Pulse: Regular Respiratory Rate: Normal Appearance: Positive for: Well-Appearing, Non-Toxic, Comfortable Pain Distress: None Mental Status: Positive for: Alert and Oriented X 3 - Systems Exam Head: Present: Atraumatic, Normocephalic Pupils: Present: PERRL Extroacular Muscles: Present: EOMI Conjunctiva: Present: Normal Ears: Present: NORMAL TM, Normal Canal. No: Erythema, TM Bulging Mouth: Present: Moist Mucous Membranes Pharnyx: Present: ERYTHEMA, TONSILS ENLARGED, Peritonsilar Swelling (peritonsilar abscess left sided). No: EXUDATE Neck: Present: Normal Range of Motion. No: Lymphadenopathy Respiratory/Chest: Present: Clear to Auscultation, Good Air Exchange. No: Respiratory Distress, Accessory Muscle Use Cardiovascular: Present: Regular Rate and Rhythm, Normal S1, S2. No: Murmurs Abdomen: No: Tenderness, Distention, Peritoneal Signs Upper Extremity: Present: Normal Inspection. No: Cyanosis, Edema Lower Extremity: Present: Normal Inspection. No: Edema Neurological: Present: GCS=15, CN II-XII Intact, Speech Normal, Motor Func Grossly Intact Skin: Present: Warm, Dry, Normal Color. No: Rashes Psychiatric: Present: Alert, Oriented x 3, Normal Insight, Normal Concentration Medical Decision Making ED Course and Treatment: 12/09/18 10:45 Impression: 58 year old male with left-side severe sore throat. Physical exam shows a large peritonsilar abscess; no other acute findings on examination. Plan: -- Labs -- Blood Culture -- Decadron -- IV Fluids -- Rocephin Progress Notes: 12/09/18 11:[address] Siu, who accepts patient for admission. 12/09/18 11:[address] Dubon, who will see patient on consult. - Medication Orders Current Medication Orders: Dexamethasone (Decadron Inj) 10 mg IVP STAT STA Stop: 12/09/18 10:40 Ceftriaxone Sodium (Rocephin 1 Gram Ivpb) 1 gm in 100 mls @ 200 mls/hr IVPB STAT STA; Protocol Stop: 12/09/18 11:09 Sodium Chloride (Sodium Chloride 0.9%) 1,000 mls @ 1,000 mls/hr IV .Q1H STA Stop: 12/09/18 11:37 - Scribe Statement The provider has reviewed the documentation as recorded by the Scribe Ghada Lozano All medical record entries made by the Scribe were at my direction and personally dictated by me. I have reviewed the chart and agree that the record accurately reflects my personal performance of the history, physical exam, medical decision making, and the department course for this patient. I have also personally directed, reviewed, and agree with the discharge instructions and disposition. Disposition/Present on Arrival - Present on Arrival Any Indicators Present on Arrival: No History of DVT/PE: No History of Uncontrolled Diabetes: No Urinary Catheter: No History of Decub. Ulcer: No History Surgical Site Infection Following: None - Disposition Have Diagnosis and Disposition been Completed?: Yes Diagnosis: Peritonsillar abscess Disposition: HOSPITALIZED Disposition Time: 11:29 Patient Plan: Observation Condition: GOOD Referrals: Manjit Siu MD [Primary Care Provider] - Follow up with primary
[2018-12-09 11:22] LABS: BASO # 0.04 K/mm3 (0.0-2.0); BASO % 0.3 % (0.0-3.0); EOS # 0.1 (0.0-0.7); EOS % 0.8 % (1.5-5.0); HEMOGLOBIN 14.9 g/dL (14.0-18.0); LYMPH # 2.1 (1.2-3.4); LYMPH % 16.3 % (22.0-35.0); MEAN CELL VOLUME 90.2 fl (80.0-105.0); MEAN CORPUSCULAR HEMOGLOBIN 29.2 pg (25.0-35.0); MEAN CORPUSCULAR HGB CONC 32.4 g/dl (31.0-37.0); MEAN PLATELET VOLUME 10.3 fl (7.0-11.0); MONO # 1.2 (0.1-0.6); MONO % 8.9 % (1.0-6.0); RBC 5.1 10^6/uL (3.5-6.1); RED CELL DISTRIBUTION WIDTH 13.9 % (11.5-14.5); WHITE BLOOD COUNT 12.9 10^3/uL (4.5-11.0)
[2018-12-09 11:27] LABS: ALB/GLOB RATIO 1.1 (1.1-1.8); ALBUMIN 4.2 g/dL (3.0-4.8); ALT/SGPT 28 U/L (7-56); AST/SGOT 28 U/L (17-59); BLOOD UREA NITROGEN 11 mg/dL (7-21); CALCIUM 9.3 mg/dL (8.4-10.5); GFR NON-AFRICAN AMERICAN > 60
[2018-12-09 14:47] VITALS: O2SAT 95
--- NOTE | 2018-12-09 15:30 | CP.PCM.CON ---
History of Present Illness - History of Present Illness History of Present Illness: This is a 58 yoa white male with 1 week hx of progressive sore throat. Review of Systems - EENT Eyes: As Per HPI Past Patient History - Infectious Disease Hx of Infectious Diseases: None - Tetanus Immunizations Tetanus Immunization: Unknown - Past Medical History & Family History Past Medical History?: Yes - Past Social History Smoking Status: Current Some Days Smoker - CARDIAC Hx Hypertension: Yes Hx Peripheral Edema: Yes (ble +1) - PULMONARY Hx Respiratory Disorders: Yes Hx Asthma: Yes Other/Comment: SMOKED 1/2 TO PPD QUIT - NEUROLOGICAL Hx Neurological Disorder: Yes Hx Dizziness: Yes - HEENT Other/Comment: h/o throat abscess - RENAL Hx Chronic Kidney Disease: No - ENDOCRINE/METABOLIC Hx Endocrine Disorders: No - HEMATOLOGICAL/ONCOLOGICAL Hx Blood Disorders: No - INTEGUMENTARY Hx Dermatological Problems: No - MUSCULOSKELETAL/RHEUMATOLOGICAL Hx Back Pain: Yes Hx Falls: No - GASTROINTESTINAL Hx Gastroesophageal Reflux: Yes - GENITOURINARY/GYNECOLOGICAL Hx Genitourinary Disorders: No - PSYCHIATRIC Hx Depression: No Hx Emotional Abuse: No Hx Physical Abuse: No Hx Substance Use: No - SURGICAL HISTORY Hx Appendectomy: Yes Other/Comment: CARD CATH. 2001 - ANESTHESIA Hx Anesthesia: Yes Hx Anesthesia Reactions: No Hx Malignant Hyperthermia: No Meds Allergies/Adverse Reactions: Allergies Allergy/AdvReac Type Severity Reaction Status Date / Time No Known Allergies Allergy Verified 07/15/18 09:34 - Medications Medications: Current Medications Amlodipine Besylate (Norvasc) 5 mg PO DAILY REPLACED BY [facility] Last Admin: 12/09/18 14:33 Dose: 5 mg Atorvastatin Calcium (Lipitor) 40 mg PO DAILY REPLACED BY [facility] Ceftriaxone Sodium (Rocephin 1 Gram Ivpb) 1 gm in 100 mls @ 200 mls/hr IV ONCE MIRZA; Protocol Metoprolol Tartrate (Lopressor) 12.5 mg PO DAILY REPLACED BY [facility] Last Admin: 12/09/18 14:33 Dose: 12.5 mg Physical Exam - Constitutional Appears: Non-toxic - Head Exam Head Exam: ATRAUMATIC - Eye Exam Eye Exam: EOMI - ENT Exam ENT Exam: Normal Oropharynx, TM's Normal Bilaterally - Additional Findings Additional findings: left peritonsillar abscess drained 5 cc purulence tolerated procedure well. tms normal au, mild trismus Results - Vital Signs Recent Vital Signs: Last Vital Signs Temp 98.4 F 12/09/18 14:00 Pulse 84 12/09/18 14:33 Resp 84 H 12/09/18 14:00 BP 168/81 H 12/09/18 14:33 Pulse Ox 95 12/09/18 14:00 - Labs Result Diagrams: 12/09/18 10:40 12/09/18 10:40 Labs: Laboratory Results - last 24 hr 12/09/18 12/09/18 10:40 10:40 WBC 12.9 H RBC 5.10 Hgb 14.9 Hct 46.0 MCV 90.2 MCH 29.2 MCHC 32.4 RDW 13.9 Plt Count 203 MPV 10.3 Neut % (Auto) 73.7 H Lymph % (Auto) 16.3 L [place] % (Auto) 8.9 H Eos % (Auto) 0.8 L Baso % (Auto) 0.3 Lymph # (Auto) 2.1 [place] # (Auto) 1.2 H Eos # (Auto) 0.1 Baso # (Auto) 0.04 Absolute Neuts (auto) 9.51 H Sodium 139 Potassium 3.9 Chloride 99 Carbon Dioxide 30 Anion Gap 14 BUN 11 Creatinine 0.7 L Est GFR ( Amer) > 60 Est GFR (Non-Af Amer) > 60 Random Glucose 141 H Calcium 9.3 Magnesium 1.9 Total Bilirubin 1.0 AST 28 ALT 28 Alkaline Phosphatase 76 Total Protein 8.0 Albumin 4.2 Globulin 3.8 Albumin/Globulin Ratio 1.1 Assessment & Plan - Assessment and Plan (Free Text) Assessment: left peritonsilar abcess Plan: Iv antibiotics with probable discharge in the am. culture pu
[2018-12-09] MEDS: Levalbuterol 0.63 MG/3 ML Inhal Soln UD IH SCH (20:53)
--- NOTE | 2018-12-09 23:17 | HP ---
DATE OF EXAM: 12/09/2018 CHIEF COMPLAINT: The patient, Mark Armenta is a 58-year-old male, came with a complain of difficulty swallowing, pain in his throat and history of left-sided severe sore throat. HISTORY OF PRESENT ILLNESS: This is a 58-year-old male with past medical history of recurrent peritonsillar abscess. It had 2 times in the past, was treated with IV antibiotic and has been recommended to do surgery, but he declined it. The patient denied any nausea, vomiting, fever. No other complaints. The patient came to ER because of the above complaints. PAST MEDICAL HISTORY: Hypertension, hypercholesterolemia, and morbid obesity. FAMILY HISTORY: Noncontributory. SOCIAL HISTORY: Occasionally smoke and drink. Otherwise negative. ALLERGIES: NO KNOW ALLERGY. MEDICATIONS: He takes amlodipine 5 mg, metoprolol 12.5 mg twice a day, Lipitor 40, aspirin 81 and he has been on Augmentin as an outpatient. REVIEW OF SYSTEMS: As in the present illness, otherwise negative. PHYSICAL EXAMINATION VITAL SIGNS: Temperature 98.5, heart rate 98, blood pressure 165/96, respirations 18, and saturation 98% on room air. HEAD AND NECK: Normal. No JVD. No thyromegaly. On throat examination; on the left side, there is a swelling, redness, possible abscess. CHEST: Clear bilateral. CARDIAC: First sound and second sound normal. No murmur, rub, or gallop. ABDOMEN: Soft and nontender. EXTREMITIES: No edema. NEUROLOGIC: Normal. LABORATORY DATA: White count 12.9, hemoglobin 14.9, hematocrit 46, and platelets 203. Chemistry; sodium 139, potassium 3.9, chloride 99, bicarb 30, BUN 11, creatinine 0.7, and blood sugar 141. Liver function test is normal. IMPRESSION AND PLAN: A 58-year-old male, who came in with left side swelling of the throat, possible peritonsillar abscess. We will admit the patient, IV Rocephin, ENT consult. We will resume his blood pressure medicines and we will follow up clinically. Continue current therapy. Manjit Siu MD
[2018-12-10] MEDS: Levalbuterol 0.63 MG/3 ML Inhal Soln UD IH SCH ×2 (07:36→13:30)
[2018-12-10 08:05] VITALS: PULSE 69; RESP 18; TEMP 97.3
[2018-12-10] MEDS: cefTRIAXone 1 gm 1 GM/100 ML BAG IV SCH ×2 (09:31→13:00)
[2018-12-10 09:37] VITALS: BP 124/66
[2018-12-10] MEDS ORDERED: CETIRIZINE 10 MG PO SCH (10:00)
--- NOTE | 2018-12-11 23:19 | DS ---
HOSPITAL COURSE: A 58-year-old male, came in with peritonsillar abscess on the left side. The patient was seen by ENT consultation and the patient was given IV antibiotic, Rocephin. The patient improved. He feels better, able to swallow. Incision and drainage done by Dr. Golden. The patient also had wound culture, which shows no growth and the blood culture came back negative. The patient is stable, would be discharged home to follow up as outpatient. The patient has gram-positive cocci and many polymorphocytes on Gram stain, the blood culture did not grow anything. He did receive already Rocephin. DISCHARGE DIAGNOSES: 1. Left peritonsillar abscess. 2. Hypertension. 3. Morbid obesity. 4. Hypercholesterolemia. DISCHARGE INSTRUCTIONS: Discharge home. Follow up with ENT within a week. Manjit Siu MD
== END 2018-12-10 16:24 | disposition home or self-care (01) ==
LOC: ED 10:22 → ERH 11:27 → 5RNO 12:27
PROVIDERS: ADMIT Internal Medicine; ATTEND Internal Medicine
DX: J36 Peritonsillar abscess (principal); E78.00 Pure hypercholesterolemia, unspecified; I10 Essential (primary) hypertension; E66.01 Morbid (severe) obesity due to excess calories; Z68.41 Body mass index [BMI] 40.0-44.9, adult; F17.200 Nicotine dependence, unspecified, uncomplicated; J45.909 Unspecified asthma, uncomplicated; K21.9 Gastro-esophageal reflux disease without esophagitis; Z79.82 Long term (current) use of aspirin; Z90.49 Acquired absence of other specified parts of digestive tract; R25.2 Cramp and spasm
CPT/HCPCS: 80053; 83735; 85025; 87040; 87070; 88108; 94640; 94760; 96374; 99283; G0378; J0696; J1100; J7030